=== PATIENT | male | born 1965 | race Caucasian/White ===

== ENCOUNTER 2025-01-11 10:32 | Outpatient (AMB) | payer OTHER, MEDICAID, SELFPAY ==
--- NOTE | 2025-01-11 11:52 | A.SPINEOV_ITS ---
Intake Visit Reasons: lumbar stenosis Intake Note: Mr. Coates is here today c/o back pain. MRI done @ [facility] (brought disc). [facility] Consultant Required: No Assessment & Plan Assessment & Plan (1) Lumbar radiculopathy: Code(s): M54.16 - Radiculopathy, lumbar region Category: Medical Plan Dear Dr Cano, Thank you for referring MR Coates to our office today. He is a very nice 59-year-old gentleman with a previous history of a left L5-S1 diskectomy done many years ago by Dr. Emerson, with excellent results, who for the last 8 months has had progressive left sided low back pain radiating down his posterolateral thigh into his lateral calf. The pain has been getting particularly bad over the last few months. He trialed physical therapy for awhile but the pain was too intense to continue. He has tried anti- inflammatories, Tylenol etc.. He takes Suboxone at baseline for a previous history of opioid dependency and that helps a little. He has not had any injections, acupuncture chiropractic. The pain is aggravated with standing walking and gets better when he sits down. He comes in today for evaluation with an MRI done at [facility] showing severe stenosis at L4-5. PMH: Otherwise healthy, denies any major medical history, did have eye surgery, previous left L5-S1 back surgery, he had a repair of a fracture of his leg when he was a child. Denies any cardiovascular problems. He is a lifelong smoker, smokes about a half a pack a day, has never been diagnosed with COPD, was given an inhaler 1 point but he is not short of breath so does not really use it. No history of liver or kidney disease. He reports he was diagnosed with a small kidney from his lumbar MRI and there is a follow up image to be done on that apparently. Denies any history of bleeding disorders, blood clots, cancer or unusual infections. No major abdominal surgeries. Social hx: Smokes a half a pack a day, no marijuana, no alcohol Medications: Suboxone, Motrin, Tylenol Allergies: None Physical exam: He has significant pain with standing and walking, grimaces, he limps down the hallway with an antalgic gait. He has mild foot weakness on the left I would rate it as 4/5. Has a well healed scar in the middle of his back. Imaging review: Lumbar MRI done at [facility] shows he has postsurgical changes at L5-S1 on the left, at L4-5 he has degenerative disc disease with moderate to severe stenosis, there is a small synovial cyst in the posterior midline. Impression: 59-year-old male presents with history of left L5-S1 microdiskectomy done many years ago at [facility], now develops 8 months of progressive left leg pain with standing and walking, better when he sits. He has moderate to severe stenosis at L4-5. He has tried conservative treatment in the form of tincture of time, medications and physical therapy. I think he is a good candidate for left L4-5 decompression with removal of synovial cyst. We did briefly discuss that procedure, risks, benefits etc.. Because of the previous back surgery he had at [facility], he understands the recovery etc.. I will send him for flexion-extension x-rays just to evaluate for any occult instability because there is a slight spondylolisthesis at L4-5 but I do not suspect there is any instability. I will review everything with Dr. Funk and get back to the patient with a final plan. The patient was given risk and benefits of surgery including but not limited to infection, hematoma, nerve injury, durotomy, weakness, bowel/bladder injury, persistent pain. We also discussed the option to continue with conservative treatment and patient wishes to proceed with surgery. They are aware they should stop NSAIDs 7 days prior to surgery. All questions were answered to the best of our ability. If there is anything about this patients medical history that we have overlooked or concerns you have about us proceeding with surgery we would appreciate any input you can offer Thank you for allowing us to care for your patient. The total time spent with this visit with this patient was 45 minutes reviewing history, physical exam, lumbar imaging review, and implementation of treatment plan or further diagnostic testing Taiwo Funk MD,PhD [facility] Orders: Orders XR lumbar spine 4V min Today M54.16 - Radiculopathy, lumbar region Coding Level of Care Code New Pt Level 4 (08174) Diagnoses Lumbar radiculopathy M54.16
--- OUTSIDE RECORDS SUMMARY | 2025-01-11 21:42 | XMS_ITS | Data Portability ---
Author Organization [place] - [facility] Address [address] [place] [address] Care Team Providers Care Glassworker Name Role Phone MILLY LANDA Primary Care Provider [phone] MILLY LANDA Referring Provider [phone] Assessment No assessment recorded. Plan of Treatment Reminders Order Date Submit Date Provider Last Modified By Organization Details Last Modified Time Details Appointments PCP-Addic tion Medicine 2024 08:45A M Milly Landa, DO Not available Not available Not available Lab unlisted lab - [id number] buprenorp kristine mat 2024 025 [facility], [address] [place], [address], 11/29/2024 17:33:52 noninvasi ve colorecta l cancer DNA + occult blood screening , QL, stool 2024 [address] [place] [address] [facility], [address], [address], [place], [address], 12/03/2024 14:07:19 unlisted lab - [id number] buprenorp kristine mat 2024 025 [facility], [address] [place], [address], 11/01/2024 14:10:58 unlisted lab - [id number] buprenorp kristine mat 2024 025 [facility] Patient [facility], [address] [place], [address], 10/05/2024 01:12:24 Referral pain managemen t referral [address] [facility], [address] [facility], [place], [address], 10/01/2024 11:17:47 Procedures None recorded. Surgeries None recorded. Imaging MRI, lumbar spine, w/o contrast 2024 [facility], [address] [place] [address], [place], [address], 12/26/2024 13:47:59 Medication Orders Neurontin 400 mg capsule 2024 [facility], [address] [place], [address], 12/24/2024 08:52:37 Medrol (Lucien) 4 mg tablets in a dose pack 2024 [facility], [address] [place], [address], 12/24/2024 08:57:56 Suboxone 8 mg-2 mg sublingua l film 2024 [facility], [address] [place], [address], 12/24/2024 08:52:37 trazodone 150 mg tablet 2024 [facility], [address] [place], [address], 12/24/2024 08:52:36 Humira(CF ) Pen 40 mg/0.4 mL subcutane ous kit 2024 [facility], [address] [place], [address], 12/24/2024 08:52:36 Neurontin 400 mg capsule 2024 025 [email or web address], [address] [place], [address], 11/26/2024 09:22:41 trazodone 150 mg tablet 2024 025 [email or web address], [address] [place], [address], 11/26/2024 09:22:41 albuterol sulfate HFA 90 mcg/actua tion aerosol inhaler 2024 025 [facility], [address] [place], [address], 11/26/2024 09:22:47 Suboxone 8 mg-2 mg sublingua l film 2024 025 [facility], [address] [place], [address], 11/26/2024 09:22:52 Humira(CF ) Pen 40 mg/0.4 mL subcutane ous kit 2024 025 [email or web address] [facility], [address] [place], [address], 11/30/2024 11:57:00 Suboxone 8 mg-2 mg sublingua l film 2024 025 [facility], [address] [place], [address], 10/29/2024 09:11:44 Neurontin 400 mg capsule 2024 025 [facility], [address] [place], [address], 11/26/2024 08:50:14 Medrol (Lucien) 4 mg tablets in a dose pack 2024 025 [facility], [address] [place], [address], 10/29/2024 09:08:15 gabapenti n 300 mg capsule 2024 025 [facility], [address] [place], [address], 10/29/2024 09:08:28 prednison e 20 mg tablet 2024 025 [facility], [address] [place], [address], 10/13/2024 05:01:47 nicotine 14 mg/24 hr daily transderm al patch 2024 025 [facility], [address] [place], [address], 11/26/2024 08:50:51 Suboxone 8 mg-2 mg sublingua l film 2024 025 [email or web address], [address] [place], [address], 10/09/2024 09:13:54 Patient TargetsNo targets recorded. Patient Instructions Encounter Date Encounter Id Patient Instructions Last Modified By Organization Details Last Modified Time 10/09/2024 [id number] 1. PHYSICAL THERAPY: pt encouraged to stay active. home exercises discussed. flier given. 2. BEHAVIORAL THERAPY: stable depression/psych issues 3. MEDICATIONS: will increase neurontin and try medrol dose pack 4. INTERVENTIONS: none 5. FUNCTION: pain moderately affects his function 6. PAIN ASSESSMENT: moderate to severe 7. COMPLIANCE: n/a -first visit 8. WEIGHT LOSS/DIET/SMOKING CESSATION: counseled 9. LABS/RADIOLOGY: will get xrays 11. REFERRALS : none. pt to start PT next week 10. FOLLOW UP: 7 weeks 12. OPIOID RISK ASSESSMENT: HIGH - on suboxone pt w 9 month h/o lower back pain radiating to the left foot w paresthesias . h/o lumbar diskectomy ernesto Not available 10/09/2024 09:58:43 Reason for Referral Pain Management Referral for Lumbar radiculopathy Referring Physician: Milly Landa, Family Medicine, Encounter Date: 10/01/2024 Results Created Date Observation Date Name Description Value Unit Range Abnormal Flag Note LastModifiedBy Organization Detail LastModifiedTime 09/16/1909/15/2024 GROSS AND MICRO SCOPI C LEVEL 2 results ----- ----- ----- ----- ----- ----- ----- ----- ----- ----- ----- ----- ----- ----- ----- ----- ----- ----- -- RUN DATE: 09/17 Carlos castillo *Live * - LAB PAGE 1 RUN TIME: 1319 Speci men Inqui ry ----- ----- ----- ----- ----- ----- ----- ----- ----- ----- ----- ----- ----- ----- ----- ----- ----- ----- -- PATIE NT: Luana Coates ACCT: [id number] LOC: HE.OR U: [id number] AGE/S X: 59/M ROOM: RE09/[address]: Lior jackson MD : 04/25 BED: DIS: STATU S: DEP [facility] TLOC: ----- ----- ----- ----- ----- ----- ----- ----- ----- ----- ----- ----- ----- ----- ----- ----- ----- ----- -- SPEC : [id number] RECD: 09/15 219 STATU S: ALEX GASPAR NUM: [id number] HAN: 09/15- [address]: Lior jackson MD ENTER ED: 09/15 219 SP TYPE: Surgi chauncey OTHR DR: Doris Owens Divit o DO ORDER ED: Gross Micro L2 Copie s To: Doris Penningtonit o DO Summi t Famil y Pract ice [address] [facility] [place] [address] [phone] [email or web address] Lior jackson MD [address] [facility] [place] [address] [phone] Histo logy: TISSU E ID BLK FRZ PCS BLOCK PROCE DURE LEVEL LEVEL PROCE DURE COM ____ _ ___ ___ ___ MARKE RS: GROSS DESCR IPTIO N REVIE WED PROCE DURES : Gross Micro L2 (08/26 06/19- 1319) TISSU ES: Urete r - Left urete ral brush Final Diagn osis Urete r - Left urete ral brush : Tissu e did not survi ve proce ssing . Gross Descr iptio n Amell ,Chri stoph er, date of 04/25 , biops y left urete ral brush . Recei sophia in forma dorota is a brush conta ining multi ple minut e fragm ents of soft tissu e measu ring less than 1 mm. Speci men is filte red all proce ssed in 1 casse tte. Speci men may not survi ve proce ssing . ROSIO NUED ON NEXT PAGE ----- ----- ----- ----- ----- ----- ----- ----- ----- ----- ----- ----- ----- ----- ----- ----- ----- ----- -- RUN DATE: 09/17 Carlos castillo *Live * - LAB PAGE 2 RUN TIME: 1318 Specjerrod emerson ----- ----- ----- ----- ----- ----- ----- ----- ----- ----- ----- ----- ----- ----- ----- ----- ----- ----- -- SPEC: [id number] JULIO CESAR NT: Luana Coates [id number] (Cont inued ) ----- ----- ----- ----- ----- ----- ----- ----- ----- ----- ----- ----- ----- ----- ----- ----- ----- ----- -- ----- ----- ----- ----- ----- ----- ----- ----- ----- ----- ----- ----- ----- ----- ----- ----- ----- ----- -- Savita d (sign ature on file) _ Osvaldo bee MD 09/17 1319 ----- ----- ----- ----- ----- ----- ----- ----- ----- ----- ----- ----- ----- ----- ----- ----- ----- ----- -- END OF REPOR T Not Available [facility] Laboratory Department [address] [place] [address], [address] 09/17/2024 13:20:09 09/16/1909/15/2024 CYTOP TIBURCIO GILLESPIE SONU results ----- ----- ----- ----- ----- ----- ----- ----- ----- ----- ----- ----- ----- ----- ----- ----- ----- ----- -- RUN DATE: 09/18 Carlos castillo *Live * - LAB PAGE 1 RUN TIME: 1228 Speci elena emerson ----- ----- ----- ----- ----- ----- ----- ----- ----- ----- ----- ----- ----- ----- ----- ----- ----- ----- -- JULIO CESAR NT: Luana Coates ACCT: [id number] LOC: .OR U: [id number] AGE/S X: 59/M ROOM: RE09/[address]: Lior jackson MD : 04/25 BED: DIS: STATU S: DEP SDC TLOC: ----- ----- ----- ----- ----- ----- ----- ----- ----- ----- ----- ----- ----- ----- ----- ----- ----- ----- -- SPEC : [id number] RECD: 09/15- 210 STATU S: ALEX GASPAR NUM: [id number] HAN: 09/15- [address]: Lior jackson MD ENTER ED: 09/15 211 SP TYPE: Cytol ogy OTHR DR: Doris Penningtonit o DO ORDER ED: Cyto- enhan sonu/ COMME NTS: TO FOR UROV 0722 R32 AM Copie s To: Doris Diego o DO Summi t Famil y Pract ice [address] [place] [address] [phone] [email or web address] Lior jackson MD [address] [place] [address] [phone] PROCE DURES : Cyto- enhan sonu (08/26) TISSU ES: A. Urine - Urine for cytol ogy B. Urine - Renal washi ngs for cytol ogy Final Diagn osis A. Urine - Urine for cytol ogy: Atypi chauncey uroth elial cells prese nt. The speci men is triag ed for UroVy chika. B. Urine - Renal washi ngs for cytol ogy: Negat corrie for high- grade uroth elial carci noma. Rare uroth elial cells and squam ous cells ROSIO VÁZQUEZ ON NEXT PAGE ----- ----- ----- ----- ----- ----- ----- ----- ----- ----- ----- ----- ----- ----- ----- ----- ----- ----- -- RUN DATE: 09/18 Carlos castillo *Live * - LAB PAGE 2 RUN TIME: 1228 Speci men Inqui ry ----- ----- ----- ----- ----- ----- ----- ----- ----- ----- ----- ----- ----- ----- ----- ----- ----- ----- -- SPEC: [id number] JULIO CESAR NT: Finamoises Luana [id number] (Cont inued ) ----- ----- ----- ----- ----- ----- ----- ----- ----- ----- ----- ----- ----- ----- ----- ----- ----- ----- -- Speci men Descr marc lugo,[employer] pher, date of 04/25 , urine for cytol ogy. Recei sophia are 120 cc of yello w clear urine to be used for liqui d-bas ed cytol ogy. Susan lugo, [employer] pher, date of 04/25 , renal washi ngs for cytol ogy. Recei sophia are 8 cc of light yello w clear renal washi ngs to be used for liqui d-bas ed cytol ogy. Speci men is QNS for UroVita farr. ----- ----- ----- ----- ----- ----- ----- ----- ----- ----- ----- ----- ----- ----- ----- ----- ----- ----- -- Savita d (sign ature on file) _ Adeline Nascimento MD 09/18 1228 ----- ----- ----- ----- ----- ----- ----- ----- ----- ----- ----- ----- ----- ----- ----- ----- ----- ----- -- END OF REPOR T Not Available [facility] Laboratory Department [address] [place] [address], [id number] 09/18/2024 12:29:17 09/16/1909/22/2024 MD MEJIA DWYER bladder cancer fish findings: Commen t . Negat corrie UroVy chika Resul t Fluor escen ce in situ hybri dizat ion (FISH ) of cells recov ered from urine was perfo rmed using the Competitor t Molec ular UroVy chika Kit. A minim um of twent y-fiv e cells was exami gini, and an abnor mal signa l carito rn was not detec brandon, indic ating a NEGAT CORRIE resul t. The perfo rmanc e geoffrey cteri stics of this test have been valid ated by [facility]. A posit corrie resul t is the detec tion of four or more cells with great er than two signa ls for at least two chrom osome s (3, and/o r 7, and/o r 17) and/o r twelv e or more cells with no signa l for chrom osome 9. Probe s: 3cen( D3Z1) , 7cen( D7Z1) , 9p21( p16), 17cen (D17Z 1) These resul ts shoul d be inter prete d with cauti on as the crite kaylee for UroVy chika findi ngs have not been estab lishe d in sharyn mendoza wash, instr ument ed, or fabian teriz ed speci mens by the FDA. Not Available [facility] Laboratory Department [address] [place] [address], [id number] 09/22/2024 17:07:22 09/16/1909/22/2024 MD MEJIA DWYER specimen type: Tavo owens . Unspe cifie d Colle ction Metho d Not Available [facility] Laboratory Department [address] [place] [address], [id number] 09/22/2024 17:07:22 09/16/1909/22/2024 MD MEJIA DWYER specimen description: Tavo cortes is 90ml of yello w, clear , prese rved urine . Not Available [facility] Laboratory Department [address] [place] [address], [id number] 09/22/2024 17:07:22 09/16/19 25 09/22/2024 MD MEJIA DWYER electronical ly signed: Tavo robison M.D. Not Available [facility] Department [address] [place] [address], [id number] 09/22/2024 17:07:22 09/16/19 25 09/22/2024 MD MEJIA DWYER clinical data: Tavo Bee clini chauncey data speci fied Not Available [facility] Laboratory Department [address] [place] [address], [id number] 09/22/2024 17:07:22 09/16/19 25 09/22/2024 MD MEJIA DWYER CPT codes: Tavo Burnham [address] Perfo rmed at: 01 - [employer] 1 Fores t [facility] [place] [address] 2271 Lab Direc tor: Jahaira Jimenez MD, Phone : [phone] Not Available [facility] Laboratory Department [address] [place] [address], [address]69[address] 09/22/2024 17:07:22 10/02/19 25 10/05/2024 [id number] 3 BUPRE NORPH INE MAT buprenorphin e ur POSITI VE NG/mL cutoff =5 abnormal Not Available [facility] Department [address] [place] [address], [id number] 10/05/2024 01:12:24 10/02/19 25 10/05/2024 [id number] 3 BUPRE NORPH INE MAT buprenorphin e POSITI VE . abnormal Not Available [facility] Department [address] [place] [address], 62082 10/05/2024 01:12:24 10/02/19 25 10/05/2024 [id number] 3 BUPRE NORPH INE MAT buprenorphin e scr POSITI VE . abnormal Not Available [facility] Department [address] [place] [address], 86059 10/05/2024 01:12:24 10/02/19 25 10/05/2024 [id number] 3 BUPRE NORPH INE MAT buprenorphin e conf MS ur 214 NG/mL cutoff =5 Not Available [facility] Department [address] [place] [address], 52640 10/05/2024 01:12:24 10/02/19 25 10/05/2024 66124 3 BUPRE NORPH INE MAT buprenorphin e/cr 404 . Resul t Units : ng/mg Creat Not Available [facility] Laboratory Department [address] [place] [address], [id number] 10/05/2024 01:12:24 10/02/19 25 10/05/2024 83716 3 BUPRE NORPH INE MAT norbuprenorp kristine POSITI VE . abnormal Not Available [facility] Department [address] [place] [address], 35228 10/05/2024 01:12:24 10/02/19 25 10/05/2024 16554 3 BUPRE NORPH INE MAT norbuprenorp kristine conf MS ur 709 NG/mL cutoff =5 Not Available [facility] Department [address] [place] [address], [id number] 10/05/2024 01:12:24 10/02/19 25 10/05/2024 12980 3 BUPRE NORPH INE MAT norbuprenorp kristine/cr 1338 . Resul t Units : ng/mg Creat Not Available [facility] Department [address] [place] [address], 89213 10/05/2024 01:12:24 10/02/19 25 10/05/2024 63598 3 BUPRE NORPH INE MAT norbup/bup ratio 3.31 ratio . Not Available [facility] Laboratory Department [address] [place] [address], 79666 10/05/2024 01:12:24 10/02/19 25 10/05/2024 78491 3 BUPRE NORPH INE MAT naloxone POSITI VE . abnormal Not Available [facility] Department [address] [place] [address], 53844 10/05/2024 01:12:24 10/02/19 25 10/05/2024 92289 3 BUPRE NORPH INE MAT naloxone conf MS ur >1000 NG/mL cutoff =25 Not Available [facility] Department [address] [place], [address] 10/05/2024 01:12:24 10/02/19 25 10/05/2024 04132 3 BUPRE NORPH INE MAT ethyl glucuronide ur NEGATI VE NG/mL cutoff =500 Not Available [facility] Department [address] [place], [address] 10/05/2024 01:12:24 10/02/19 25 10/05/2024 72214 3 BUPRE NORPH INE MAT amphetamines ur NEGATI VE NG/mL cutoff =500 Not Available [facility] Department [address] [place], [address] 10/05/2024 01:12:24 10/02/19 25 10/05/2024 09616 3 BUPRE NORPH INE MAT barbiturates ur NEGATI VE NG/mL cutoff =200 Not Available [facility] Department [address] [place] [address], 37748 10/05/2024 01:12:24 10/02/19 25 10/05/2024 71186 3 BUPRE NORPH INE MAT benzodiazepi regina ur NEGATI VE NG/mL cutoff =200 Not Available [facility] Department [address] [place] [address], 03641 10/05/2024 01:12:24 10/02/19 25 10/05/2024 80749 3 BUPRE NORPH INE MAT cocaine metabolite ur NEGATI VE NG/mL cutoff =150 Not Available [facility] Department [address] [place] [address], 41632 10/05/2024 01:12:24 10/02/19 25 10/05/2024 32632 3 BUPRE NORPH INE MAT phencyclidin e pcp ur NEGATI VE NG/mL cutoff =25 Not Available [facility] Department [address] [place] [address], 33833 10/05/2024 01:12:24 10/02/19 25 10/05/2024 30792 3 BUPRE NORPH INE MAT marijuana mtb THC ur POSITI VE NG/mL cutoff =20 abnormal Not Available [facility] Department [address] [place] [address], 97546 10/05/2024 01:12:24 10/02/19 25 10/05/2024 50593 3 BUPRE NORPH INE MAT marijuana mtb THC POSITI VE . abnormal Not Available [facility] Department [address] [place] [address], 84[address] 10/05/2024 01:12:24 10/02/19 25 10/05/2024 65261 3 BUPRE NORPH INE MAT carboxy-THC 33 NG/mL cutoff =10 Not Available [facility] Department [address] [place] [address], 52228 10/05/2024 01:12:24 10/02/19 25 10/05/2024 10362 3 BUPRE NORPH INE MAT THC/cr ratio 62 . Resul t Units : ng/mg Creat Perfo rmed at: 01 - [facility] [address] [place] [address] Lab Direc tor: Anna nguyễn [facility] , Phone : [phone] Not Available [facility] Laboratory Department [address] [place] [address], 165[address] 10/05/2024 01:12:24 10/02/19 25 10/05/2024 14298 3 BUPRE NORPH INE MAT 6-acetylmorp kristine ur NEGATI VE NG/mL cutoff =10 Not Available [facility] Department [address] [place] [address], 17611 10/05/2024 01:12:24 10/02/19 25 10/05/2024 22418 3 BUPRE NORPH INE MAT opiates ur NEGATI VE NG/mL cutoff =300 Not Available [facility] Department [address] [place] [address], 17064 10/05/2024 01:12:24 10/02/1910/05/2024 21511 3 BUPRE NORPH INE MAT oxycodone ur NEGATI VE NG/mL cutoff =100 Not Available [facility] Department [address] [place] [address], 32342 10/05/2024 01:12:24 10/02/19 25 10/05/2024 24101 3 BUPRE NORPH INE MAT tapentadol ur NEGATI VE NG/mL cutoff =200 Not Available [facility] Department [address] [place] [address], 98267 10/05/2024 01:12:24 10/02/19 25 10/05/2024 95757 3 BUPRE NORPH INE MAT fentanyl ur NEGATI VE NG/mL cutoff =2.0 Not Available [facility] Department [address] [place], [address] 10/05/2024 01:12:24 10/02/1910/05/2024 04385 3 BUPRE NORPH INE MAT methadone ur NEGATI VE NG/mL cutoff =300 Not Available [facility] Department [address] [place], [address] 10/05/2024 01:12:24 10/02/1910/05/2024 88040 3 BUPRE NORPH INE MAT propoxyphene ur NEGATI VE NG/mL cutoff =300 Not Available [facility] Department [address] [place] [address], 82921 10/05/2024 01:12:24 10/02/1910/05/2024 98551 3 BUPRE NORPH INE MAT tramadol ur NEGATI VE NG/mL cutoff =200 Not Available [facility] Department [address] [place] [address], 65746 10/05/2024 01:12:24 10/02/1910/05/2024 76901 3 BUPRE NORPH INE MAT carisoprodol ur NEGATI VE NG/mL cutoff =100 Not Available [facility] Department [address] [place] [address], 90491 10/05/2024 01:12:24 10/02/1910/05/2024 83424 3 BUPRE NORPH INE MAT gabapentin NEGATI VE ug/mL cutoff =1.5 Not Available [facility] Department [address] [place] [address], 27320 10/05/2024 01:12:24 10/02/1910/05/2024 39910 3 BUPRE NORPH INE MAT creatinine 53.0 mg/dL >19.9 Not Available [facility] Department [address] [place] [address], 47846 10/05/2024 01:12:24 10/02/19 25 10/05/2024 25658 3 BUPRE NORPH INE MAT urine pH 6.3 4.5-8. 9 Not Available [facility] Department [address] [place] [address], 97591 10/05/2024 01:12:24 10/02/19 25 10/05/2024 22195 3 BUPRE NORPH INE MAT nitrites NEGATI VE ug/mL <200 Not Available [facility] Department [address] [place], [address] 10/05/2024 01:12:24 10/02/1910/05/2024 59574 3 MIRA RICHMOND VIPUL please note 5 TAVO T . Some compo nents of this panel were devel oped and perfo rmanc e geoffrey cteri stics deter mined by [employer]. They have not been clear ed or appro sophia by the Food and Drug Admin istra tion: Etg, Caris oprod ol, Tapen tadol , Fenta nyl, and Gabap entin . Not Available [facility] Laboratory Department [address] [place], [address] 10/05/2024 01:12:24 10/09/1910/08/2024 CYTOP ATH-Doreen ASCENCIO results ----- ----- ----- ----- ----- ----- ----- ----- ----- ----- ----- ----- ----- ----- ----- ----- ----- ----- -- RUN DATE: 10/12 Carlos castillo *Live * - LAB PAGE 1 RUN TIME: 0950 Speci men Inqui ry ----- ----- ----- ----- ----- ----- ----- ----- ----- ----- ----- ----- ----- ----- ----- ----- ----- ----- -- PATIE NT: Luana Coates ACCT: [id number] LOC: JACK SOLIZ U: [id number] AGE/S X: 59/M ROOM: RE10/[address]: Lior jackson MD : 04/25 BED: DIS: STATU S: DEP SDC TLOC: ----- ----- ----- ----- ----- ----- ----- ----- ----- ----- ----- ----- ----- ----- ----- ----- ----- ----- -- SPEC : [id number] RECD: 10/08 921 STATU S: ALEX REQ NUM: [id number] HAN: 10/[address]: Lior jackson MD ENTER ED: 10/08 921 SP TYPE: Cytol ogy OTHR DR: Doris Owens Divit o DO ORDER ED: Cyto- enhan sonu Zohra s To: Doris Penningtonit o DO Summi t Famil y Pract ice [address] [place] [address] [phone] [email or web address] Lior jackson MD [address] [place] [address] [phone] PROCE DURES : Cyto- enhan sonu (09/25) TISSU ES: Urine - Bladd er washi ng for cytol ogy Final Diagn osis Urine - Bladd er washi ng for cytol ogy: Negat corrie for high- grade uroth elial carci noma. Rare uroth elial cells and squam ous cells . Speci men Descr iptio n Amell ,[facility], date of 04/25 , bladd er washi ng for cytol ogy. Recei sophia 70 cc, pale yello w, clear bladd er washi ng for liqui d-bas ed cytol ogy. ----- ----- ----- ----- ----- ----- ----- ----- ----- ----- ----- ----- ----- ----- ----- ----- ----- ----- -- Savita d (sign ature on file) _ Adeline Nascimento MD 10/12 0949 ----- ----- ----- ----- ----- ----- ----- ----- ----- ----- ----- ----- ----- ----- ----- ----- ----- ----- -- END OF REPOR T Not Available [facility] Laboratory Department [address] [place] [address], 23986 10/12/2024 09:50:36 10/30/1911/01/2024 63621 3 BUPRE NORPH INE MAT buprenorphin e ur POSITI VE NG/mL cutoff =5 abnormal Not Available [facility] Laboratory Department [address] [place] [address], 02184 11/01/2024 14:10:58 10/30/1911/01/2024 73547 3 BUPRE NORPH INE MAT buprenorphin e POSITI VE . abnormal Not Available [facility] Laboratory Department [address] [place] [address], 50076 11/01/2024 14:10:58 10/30/1911/01/2024 99033 3 BUPRE NORPH INE MAT buprenorphin e scr POSITI VE . abnormal Not Available [facility] Department [address] [place] [address], 73374 11/01/2024 14:10:58 10/30/1911/01/2024 13196 3 BUPRE NORPH INE MAT buprenorphin e conf MS ur 233 NG/mL cutoff =5 Not Available [facility] Department [address] [place] [address], 91982 11/01/2024 14:10:58 10/30/1911/01/2024 19206 3 BUPRE NORPH INE MAT buprenorphin e/cr 364 . Resul t Units : ng/mg Creat Not Available [facility] Laboratory Department [address] [place] [address], [id number] 11/01/2024 14:10:58 10/30/1911/01/2024 [id number] 3 BUPRE NORPH INE MAT norbuprenorp kristine POSITI VE . abnormal Not Available [facility] Department [address] [place] [address], 85748 11/01/2024 14:10:58 10/30/19 25 11/01/2024 [id number] 3 BUPRE NORPH INE MAT norbuprenorp kristine conf MS ur 857 NG/mL cutoff =5 Not Available [facility] Department [address] [place] [address], 39085 11/01/2024 14:10:58 10/30/19 25 11/01/2024 [id number] 3 BUPRE NORPH INE MAT norbuprenorp kristine/cr 1339 . Resul t Units : ng/mg Creat Not Available [facility] Department [address] [place] [address], [id number] 11/01/2024 14:10:58 10/30/1911/01/2024 [id number] 3 BUPRE NORPH INE MAT norbup/bup ratio 3.68 ratio . Not Available [facility] Laboratory Department [address] [place] [address], 51140 11/01/2024 14:10:58 10/30/19 25 11/01/2024 90061 3 BUPRE NORPH INE MAT naloxone POSITI VE . abnormal Not Available [facility] Department [address] [place] [address], 20487 11/01/2024 14:10:58 10/30/19 25 11/01/2024 [id number] 3 BUPRE NORPH INE MAT naloxone conf MS ur >1000 NG/mL cutoff =25 Not Available [facility] Department [address] [place] [address], 66990 11/01/2024 14:10:58 10/30/19 25 11/01/2024 [id number] 3 BUPRE NORPH INE MAT ethyl glucuronide ur NEGATI VE NG/mL cutoff =500 Not Available [facility] Department [address] [place] [address], 94488 11/01/2024 14:10:58 10/30/19 25 11/01/2024 [id number] 3 BUPRE NORPH INE MAT amphetamines ur NEGATI VE NG/mL cutoff =500 Not Available [facility] Department [address] [place] [address], 31884 11/01/2024 14:10:58 10/30/19 25 11/01/2024 [id number] 3 BUPRE NORPH INE MAT barbiturates ur NEGATI VE NG/mL cutoff =200 Not Available [facility] Department [address] [place] [address], 98200 11/01/2024 14:10:58 10/30/19 25 11/01/2024 87613 3 BUPRE NORPH INE MAT benzodiazepi regina ur NEGATI VE NG/mL cutoff =200 Not Available [facility] Department [address] [place] [address], 03353 11/01/2024 14:10:58 10/30/19 25 11/01/2024 10837 3 BUPRE NORPH INE MAT cocaine metabolite ur NEGATI VE NG/mL cutoff =150 Not Available [facility] Department [address] [place] [address], 39776 11/01/2024 14:10:58 10/30/19 25 11/01/2024 90736 3 BUPRE NORPH INE MAT phencyclidin e pcp ur NEGATI VE NG/mL cutoff =25 Not Available [facility] Department [address] [place] [address], 53750 11/01/2024 14:10:58 10/30/19 25 11/01/2024 77040 3 BUPRE NORPH INE MAT marijuana mtb THC ur POSITI VE NG/mL cutoff =20 abnormal Not Available [facility] Department [address] [place] [address], 56598 11/01/2024 14:10:58 10/30/19 25 11/01/2024 [id number] 3 BUPRE NORPH INE MAT marijuana mtb THC POSITI VE . abnormal Not Available [facility] Department [address] [place] [address], 30004 11/01/2024 14:10:58 10/30/19 25 11/01/2024 [id number] 3 BUPRE NORPH INE MAT carboxy-THC 62 NG/mL cutoff =10 Not Available [facility] Department [address] [place] [address], 85746 11/01/2024 14:10:58 10/30/19 25 11/01/2024 55513 3 BUPRE NORPH INE MAT THC/cr ratio 97 . Resul t Units : ng/mg Creat Perfo rmed at: 01 - [facility] [address] [facility] [place] [address] 352 Lab Direc tor: Anna nguyễn [facility] , Phone : [phone] Not Available [facility] Department [address] [place] [address], 09890 11/01/2024 14:10:58 10/30/19 25 11/01/2024 [id number] 3 BUPRE NORPH INE MAT 6-acetylmorp kristine ur NEGATI VE NG/mL cutoff =10 Not Available [facility] Department [address] [place] [address], 34968 11/01/2024 14:10:58 10/30/19 25 11/01/2024 [id number] 3 BUPRE NORPH INE MAT opiates ur NEGATI VE NG/mL cutoff =300 Not Available [facility] Department [address] [place] [address], 21877 11/01/2024 14:10:58 10/30/19 25 11/01/2024 70057 3 BUPRE NORPH INE MAT oxycodone ur NEGATI VE NG/mL cutoff =100 Not Available [facility] Department [address] [place] [address], 80223 11/01/2024 14:10:58 10/30/19 25 11/01/2024 83656 3 BUPRE NORPH INE MAT tapentadol ur NEGATI VE NG/mL cutoff =200 Not Available [facility] Department [address] [place] [address], 81596 11/01/2024 14:10:58 10/30/19 25 11/01/2024 51270 3 BUPRE NORPH INE MAT fentanyl ur NEGATI VE NG/mL cutoff =2.0 Not Available [facility] Department [address] [place] [address], 57295 11/01/2024 14:10:58 10/30/19 25 11/01/2024 86766 3 BUPRE NORPH INE MAT methadone ur NEGATI VE NG/mL cutoff =300 Not Available [facility] Department [address] [place] [address], 26297 11/01/2024 14:10:58 10/30/19 25 11/01/2024 99213 3 BUPRE NORPH INE MAT propoxyphene ur NEGATI VE NG/mL cutoff =300 Not Available [facility] Department [address] [place] [address], 55234 11/01/2024 14:10:58 10/30/19 25 11/01/2024 54149 3 BUPRE NORPH INE MAT tramadol ur NEGATI VE NG/mL cutoff =200 Not Available [facility] Department [address] [place] [address], 94102 11/01/2024 14:10:58 10/30/19 25 11/01/2024 22809 3 BUPRE NORPH INE MAT carisoprodol ur NEGATI VE NG/mL cutoff =100 Not Available [facility] Department [address] [place] [address], 72185 11/01/2024 14:10:58 10/30/19 25 11/01/2024 90501 3 BUPRE NORPH INE MAT gabapentin NEGATI VE ug/mL cutoff =1.5 Not Available [facility] Department [address] [place] [address], 90759 11/01/2024 14:10:58 10/30/19 25 11/01/2024 25529 3 BUPRE NORPH INE MAT creatinine 64.0 mg/dL >19.9 Not Available [facility] Department [address] [place] [address], 08512 11/01/2024 14:10:58 10/30/19 25 11/01/2024 73683 3 BUPRE NORPH INE MAT urine pH 6.1 4.5-8. 9 Not Available [facility] Department [address] [place] [address], 63784 11/01/2024 14:10:58 10/30/19 25 11/01/2024 38815 3 BUPRE NORPH INE MAT nitrites NEGATI VE ug/mL <200 Not Available [facility] Department [address] [place] [address], 69650 11/01/2024 14:10:58 10/30/19 25 11/01/2024 [id number] 3 BUPRE NORPH INE MAT please note 5 COMMEN T . Some compo nents of this panel were devel oped and perfo rmanc e geoffrey cteri stics deter mined by [facility]. They have not been clear ed or appro sophia by the Food and Drug Admin istra tion: Etg, Caris oprod ol, Tapen tadol , Fenta nyl, and Gabap entin . Not Available [facility] Department [address] [place], [address] 11/01/2024 14:10:58 11/27/19 25 11/29/2024 24137 3 BUPRE NORPH INE MAT buprenorphin e ur POSITI VE NG/mL cutoff =5 abnormal Not Available [facility] Department [address] [place], [address] 11/29/2024 17:33:51 11/27/19 25 11/29/2024 66670 3 BUPRE NORPH INE MAT buprenorphin e POSITI VE . abnormal Not Available [facility] Department [address] [place] [address], 25647 11/29/2024 17:33:51 11/27/19 25 11/29/2024 56022 3 BUPRE NORPH INE MAT buprenorphin e scr POSITI VE . abnormal Not Available [facility] Department [address] [place] [address], 52317 11/29/2024 17:33:51 11/27/19 25 11/29/2024 07729 3 BUPRE NORPH INE MAT buprenorphin e conf MS ur 131 NG/mL cutoff =5 Not Available [facility] Department [address] [place] [address], 12500 11/29/2024 17:33:51 11/27/19 25 11/29/2024 83502 3 BUPRE NORPH INE MAT buprenorphin e/cr 89 . Resul t Units : ng/mg Creat Not Available [facility] Department [address] [place] [address], 60183 11/29/2024 17:33:51 11/27/19 25 11/29/2024 49300 3 BUPRE NORPH INE MAT norbuprenorp kristine POSITI VE . abnormal Not Available [facility] Department [address] [place] [address], 34617 11/29/2024 17:33:51 11/27/19 25 11/29/2024 53185 3 BUPRE NORPH INE MAT norbuprenorp kristine conf MS ur >1000 NG/mL cutoff =5 Not Available [facility] Department [address] [place] [address], 13817 11/29/2024 17:33:51 11/27/19 25 11/29/2024 53100 3 BUPRE NORPH INE MAT norbuprenorp kristine/cr >676 . Resul t Units : ng/mg Creat Not Available [facility] Department [address] [place], [address] 11/29/2024 17:33:51 11/27/19 25 11/29/2024 24471 3 BUPRE NORPH INE MAT norbup/bup ratio >7.63 ratio . Not Available [facility] Laboratory Department [address] [place], [address] 11/29/2024 17:33:51 11/27/19 25 11/29/2024 72849 3 BUPRE NORPH INE MAT naloxone POSITI VE . abnormal Not Available [facility] Department [address] [place] [address], 94256 11/29/2024 17:33:51 11/27/19 25 11/29/2024 78681 3 BUPRE NORPH INE MAT naloxone conf MS ur >1000 NG/mL cutoff =25 Not Available [facility] Department [address] [place] [address], 82925 11/29/2024 17:33:51 11/27/19 25 11/29/2024 41065 3 BUPRE NORPH INE MAT ethyl glucuronide ur NEGATI VE NG/mL cutoff =500 Not Available [facility] Department [address] [place] [address], 08168 11/29/2024 17:33:51 11/27/19 25 11/29/2024 09236 3 BUPRE NORPH INE MAT amphetamines ur NEGATI VE NG/mL cutoff =500 Not Available [facility] Department [address] [place] [address], 41060 11/29/2024 17:33:51 11/27/19 25 11/29/2024 84677 3 BUPRE NORPH INE MAT barbiturates ur NEGATI VE NG/mL cutoff =200 Not Available [facility] Department [address] [place] [address], 52325 11/29/2024 17:33:51 11/27/19 25 11/29/2024 02816 3 BUPRE NORPH INE MAT benzodiazepi regina ur NEGATI VE NG/mL cutoff =200 Not Available [facility] Department [address] [place] [address], 27762 11/29/2024 17:33:51 11/27/19 25 11/29/2024 95585 3 BUPRE NORPH INE MAT cocaine metabolite ur NEGATI VE NG/mL cutoff =150 Not Available [facility] Department [address] [place] [address], 89827 11/29/2024 17:33:51 11/27/1911/29/2024 41867 3 BUPRE NORPH INE MAT phencyclidin e pcp ur NEGATI VE NG/mL cutoff =25 Not Available [facility] Department [address] [place] [address], 91204 11/29/2024 17:33:51 11/27/1911/29/2024 04353 3 BUPRE NORPH INE MAT marijuana mtb THC ur POSITI VE NG/mL cutoff =20 abnormal Not Available [facility] Department [address] [place] [address], 31695 11/29/2024 17:33:51 11/27/1911/29/2024 59827 3 BUPRE NORPH INE MAT marijuana mtb THC POSITI VE . abnormal Not Available [facility] Department [address] [place] [address], 62735 11/29/2024 17:33:51 11/27/1911/29/2024 16263 3 BUPRE NORPH INE MAT carboxy-THC 135 NG/mL cutoff =10 Not Available [facility] Department [address] [place] [address], 22629 11/29/2024 17:33:51 11/27/1911/29/2024 19338 3 BUPRE NORPH INE MAT THC/cr ratio 91 . Resul t Units : ng/mg Creat Perfo rmed at: 01 - [facility] [address] [place], [place] [id number] Lab Direc tor: Anna nguyễn [facility] , Phone : [phone] Not Available [facility] Department [address] [place] [address], 67501 11/29/2024 17:33:51 11/27/1911/29/2024 59820 3 BUPRE NORPH INE MAT 6-acetylmorp kristine ur NEGATI VE NG/mL cutoff =10 Not Available [facility] Department [address] [place] [address], 20201 11/29/2024 17:33:51 11/27/19 25 11/29/2024 73646 3 BUPRE NORPH INE MAT opiates ur NEGATI VE NG/mL cutoff =300 Not Available [facility] Department [address] [place] [address], 72194 11/29/2024 17:33:51 11/27/19 25 11/29/2024 89192 3 BUPRE NORPH INE MAT oxycodone ur NEGATI VE NG/mL cutoff =100 Not Available [facility] Department [address] [place] [address], 93568 11/29/2024 17:33:51 11/27/19 25 11/29/2024 60660 3 BUPRE NORPH INE MAT tapentadol ur NEGATI VE NG/mL cutoff =200 Not Available [facility] Department [address] [place] [address], 84656 11/29/2024 17:33:51 11/27/19 25 11/29/2024 05003 3 BUPRE NORPH INE MAT fentanyl ur NEGATI VE NG/mL cutoff =2.0 Not Available [facility] Department [address] [place] [address], 08468 11/29/2024 17:33:51 11/27/19 25 11/29/2024 81975 3 BUPRE NORPH INE MAT methadone ur NEGATI VE NG/mL cutoff =300 Not Available [facility] Department [address] [place] [address], 80929 11/29/2024 17:33:51 11/27/19 25 11/29/2024 64663 3 BUPRE NORPH INE MAT propoxyphene ur NEGATI VE NG/mL cutoff =300 Not Available [facility] Department [address] [place] [address], 26683 11/29/2024 17:33:51 11/27/19 25 11/29/2024 87780 3 BUPRE NORPH INE MAT tramadol ur NEGATI VE NG/mL cutoff =200 Not Available [facility] Department [address] [place] [address], 16465 11/29/2024 17:33:51 11/27/19 25 11/29/2024 47333 3 BUPRE NORPH INE MAT carisoprodol ur NEGATI VE NG/mL cutoff =100 Not Available [facility] Department [address] [place] [address], 25294 11/29/2024 17:33:51 10/04/16 2411/29/2024 63853 3 BUPRE NORPH INE MAT gabapentin NEGATI VE ug/mL cutoff =1.5 Not Available [facility] Department [address] [place] [address], 03893 11/29/2024 17:33:51 11/27/1911/29/2024 74958 3 BUPRE NORPH INE MAT creatinine 148.0 mg/dL >19.9 Not Available [facility] Department [address] [place] [address], 09437 11/29/2024 17:33:51 11/27/1911/29/2024 82641 3 BUPRE NORPH INE MAT urine pH 5.8 4.5-8. 9 Not Available [facility] Department [address] [place] [address], 86256 11/29/2024 17:33:51 11/27/1911/29/2024 25000 3 BUPRE NORPH INE MAT nitrites NEGATI VE ug/mL <200 Not Available [facility] Department [address] [place] [address], 45920 11/29/2024 17:33:51 11/27/1911/29/2024 52769 3 BUPRE NORPH INE MAT please note 5 COMMEN T . Some compo nents of this panel were devel opjac and perfo tanisha e geoffrey monroyri stics deter mined by [facility]. They have not been clear ed or appro sophia by the Food and Drug Admin istra tion: Etg, Caris oprod ol, Tapen tadol , Fenta nyl, and Gabap entin . Not Available [facility] Laboratory Department [address] [place] [address], 59416 11/29/2024 17:33:51 09/18/1909/15/2024 ir fluor oscop y <1HR [facility] [address] [place] [address]. [place] [address] Interv ention al Radiol ogy Rpt Signed Patien t: Pedro Coates MR#: [id number] : 1965 Acct:H [id number] Age/Se x: 59 / M ADM Date: Loc: HE.OR Attend ing Dr: Lior Galvez MD Orderi ng Physic janene: Lior Galvez MD Date of Servic e: Proced ure(s) : IR fluoro scopy <1hr Access ion Number (s): [id number] H cc: Milly Landa DO EXAM: IR fluoro scopy <1hr CLINIC AL INDICA TION: L ureter oscopy FINDIN GS: Cumula tive dose 6.85 mGy. 7 spot fluoro scopic images were submit brandon during left retrog rade ureter ogram and ureter oscopy Fillin g defect in the left mid ureter at the level of the SI joint raisin g possib ility of a mass Modera te left hydron ephros is 013 IR/IR fluoro scopy <1hr IMPRES CHIKA: Fluoro scopy was provid ed for during left retrog rade ureter ogram and ureter oscopy Fillin g defect in the left mid ureter at the level of the SI joint raisin g possib ility of a mass Modera te left hydron ephros is Electr onical ly Signed By: Lisbet Domingo MD On: 1636 Dictat ed By: Lisbet Domingo MD 1109 Signed By: Lisbet Domingo MD 1636 [facility] [address] [place] [address], 44490, 09/18/2024 07:50:16 12/27/19 25 12/26/2024 MRI, lumba r spine , w/o contr ast [facility] [address] [place] [address]. [place] [address] Magnet ic Resona nce Report Signed Patien t: Aminata Pedro esquivel MR#: [id number] : 1965 Acct:H [id number] Age/Se x: 59 / M ADM Date: Loc: HE.MRI Attend ing Dr: Milly Martinez Physic janene: Milly Landa DO Date of Servic e: Proced ure(s) : MR lumbar spine wo con Access ion Number (s): [id number] H cc: Milly Landa DO STUDY: MR lumbar spine wo con 025 8:20 AM HISTOR Y: lumbar radicu lopath y COMPAR PRESTON: None TECHNI QUE: Multis equenc e multip lanar MRI of the lumbar spine withou t intrav enous contra stTej ENNIS GS: Bone: There is preser vation of the normal lumbar lordos is. There is 2 mm retrol isthes is of L2 on L3 and 2 mm retrol isthes is of L3 on L4. There is 4 mm boyd listhe sis of L4 and L5 and 4 mm retrol isthes is of L5 and S1. Verteb ral body height s appear mainta ined. Marrow signal is mildly hetero geneou s. No suspic ious focal marrow replac ing lesion . Edema adjace nt to the bilate ral L4-L5 facets , likely degene rative in etiolo gy. Previo us left hemila minect yolanda at L5-S1 with postsu rgical change . Discs and endpla karin: There is diffus e loss of disc height and disc desicc ation throug hout the lumbar spine with relati ve preser vation of T12-L1 and L2-L3. There are associ ated degene rative endpla te change s includ ing a compon ent of Modic type I endpla te change at L5-S1. . T12-L1 : There is no disc hernia tion or signif icant spinal canal stenos is or neural forami nal stenos is. L1-2: There is no disc hernia tion or signif icant spinal canal stenos is or neural forami nal stenos is. L2-3: Slight snowboard instructor ior disc bulge withou t signif icant spinal canal or neural forami nal narrow ing. L3-4: Retrol isthes is with snowboard instructor ior disc bulge. Mild bilate ral facet arthro aba. Mild right and modera te left neural forami nal stenos is with mild spinal canal stenos is. L4-5: Boyd listhe sis of snowboard instructor ior disc bulge with disc uncove ring. Bilate ral facet arthro aba. Mild bilate ral neural forami nal stenos is with modera te to severe spinal canal stenos is. L5-S1: Retrol isthes is of snowboard instructor ior disc proces s disc uncove ring. Bilate ral facet arthro aba. Previo us left hemila minect yolanda. Mild left and modera te right neural forami nal stenos is with trace spinal canal stenos is. Spinal canal: The conus medull iván ends at the L2 level and appear s normal . 5 by 6 mm rounde d T2 hyperi ntense struct ure adjace nt to the L4-L5 facets within the dorsal aspect of the spinal canal (5:10) likely reflec ting an associ ated synovi al cyst. Atroph ic left kidney . 002 MR/MR lumbar spine wo con IMPRES CHIKA: 1. Postsu rgical change from previo us left L5-S1 hemila minect yolanda. 2. Multil evel multif actori al degene rative findin gs of the lumbar spine. Findin gs includ e modera te to severe spinal canal stenos is at L4-L5. There is also modera te left neural forami nal stenos is at L3-L4 and modera te right neural forami nal stenos is at L5-S1. Electr onical ly Signed By: Sai Martinez MD On: 1344 Dictat ed By: Sai Martinez MD 0820 Signed By: Sai Martinez MD 1344 [email or web address] [facility] [address] [place] [address], 67425, 12/28/2024 08:19:40 12/27/19 25 12/26/2024 MR lumba r spine (C-) CPT 13408 [facility], [facility] Access ion Number : [id number] Agustin t Name: Pedro Coatesa moises Record Number : [id number] Date of : 1965 Date of Exam: 2024 Referr ing Physic janene: [facility] [address] [facility] [address] Exam: MR Lumbar Spine (C-) CPT 17481 Room Descri ption: [facility] [address] [place] [address] Magnet ic Resona nce Report Signed Patiblake t: Pedro Coates MR#: [id number] : 1965 Acct: [id number] Age/Se x: 59 / M ADM Date: Loc: HE.MRI Attend ing Dr: Milly Landa DO Orderi ng Physic janene: Milly Landa DO Date of Servic e: Proced ure(s) : MR lumbar spine wo con Access ion Number (s): [id number] H cc: Milly Landa DO STUDY: MR lumbar spine wo con 025 8:20 AM HISTOR Y: lumbar radicu lopath y COMPAR PRESTON: None TECHNI QUE: Multis equenc e multip lanar MRI of the lumbar spine withou t intrav enous contra st. LOLI GS: Bone: There is preser vation of the normal lumbar lordos is. There is 2 mm retrol isthes is of L2 on L3 and 2 mm retrol isthes is of L3 on L4. There is 4 mm boyd listhe sis of L4 and L5 and 4 mm retrol isthes is of L5 and S1. Verteb ral body height s appear mainta ined. Marrow signal is mildly hetero geneou s. No suspic ious focal marrow replac ing lesion . Edema adjace nt to the bilate ral L4-L5 facets , likely degene rative in etiolo gy. Previo us left hemila minect yolanda at L5-S1 with postsu rgical change . Discs and endpla karin: There is diffus e loss of disc height and disc desicc ation throug hout the lumbar spine with relati ve preser vation of T12-L1 and L2-L3. There are associ ated degene rative endpla te change s includ ing a compon ent of Modic type I endpla te change at L5-S1. . T12-L1 : There is no disc hernia tion or signif icant spinal canal stenos is or neural forami nal stenos is. L1-2: There is no disc hernia tion or signif icant spinal canal stenos is or neural forami nal stenos is. L2-3: Slight snowboard instructor ior disc bulge withou t signif icant spinal canal or neural forami nal narrow ing. L3-4: Retrol isthes is with snowboard instructor ior disc bulge. Mild bilate ral facet arthro aba. Mild right and modera te left neural forami nal stenos is with mild spinal canal stenos is. L4-5: Boyd listhe sis of snowboard instructor ior disc bulge with disc uncove ring. Bilate ral facet arthro aba. Mild bilate ral neural forami nal stenos is with modera te to severe spinal canal stenos is. L5-S1: Retrol isthes is of snowboard instructor ior disc proces s disc uncove ring. Bilate ral facet arthro aba. Previo us left hemila minect yolanda. Mild left and modera te right neural forami nal stenos is with trace spinal canal stenos is. Spinal canal: The conus medull iván ends at the L2 level and appear s normal . 5 by 6 mm rounde d T2 hyperi ntense struct ure adjace nt to the L4-L5 facets within the dorsal aspect of the spinal canal (5:10) likely reflec ting an associ ated synovi al cyst. Atroph ic left kidney . 002 MR/MR lumbar spine wo con IMPRES CHIKA: 1. Postsu rgical change from previo us left L5-S1 hemila minect yolanda. 2. Multil evel multif actori al degene rative findin gs of the lumbar spine. Findin gs includ e modera te to severe spinal canal stenos is at L4-L5. There is also modera te left neural forami nal stenos is at L3-L4 and modera te right neural forami nal stenos is at L5-S1. Electr onical ly Signed By: Sai Martinez MD On: 134 Dictat ed By: Sai Martinez MD 08 Signed By: Sai Martinez MD 134 Electr onical ly Signed By: Sai Martinez MD [email or web address] [facility] [address] [facility], [place], [address], 12/28/2024 08:19:40 01/12/20 25 01/11/2025 XR, lumba r spine No observ ation record ed. [email or web address] [facility] General Surgery [address], [place], [address], 01/11/2025 16:53:07 Result Notes Documentation Provider Name and Address Organization Details Recorded Time Mri, Lumbar Spine, W/o Contrast : [facility] [address] [place] [address] Magnetic Resonance Report Signed Patient: Jareth Coates MR#: [id number] : 1965 Acct:[id number] Age/Sex: 59 / M ADM Date: 12/26/24 Loc: HE.MRI Attending Dr: Milly Landa DO Ordering Physician: Milly Landa DO Date of Service: 12/26/24 Procedure(s): MR lumbar spine wo con Accession Number(s): [id number] cc: Milly Landa DO STUDY: MR lumbar spine wo con 12/26/2024 8:20 AM HISTORY: lumbar radiculopathy COMPARISON: None TECHNIQUE: Multisequence multiplanar MRI of the lumbar spine without intravenous contrast. FINDINGS: Bone: There is preservation of the normal lumbar lordosis. There is 2 mm retrolisthesis of L2 on L3 and 2 mm retrolisthesis of L3 on L4. There is 4 mm anterolisthesis of L4 and L5 and 4 mm retrolisthesis of L5 and S1. Vertebral body heights appear maintained. Marrow signal is mildly heterogeneous. No suspicious focal marrow replacing lesion. Edema adjacent to the bilateral L4-L5 facets, likely degenerative in etiology. Previous left hemilaminectomy at L5-S1 with postsurgical change. Discs and endplates: There is diffuse loss of disc height and disc desiccation throughout the lumbar spine with relative preservation of T12-L1 and L2-L3. There are associated degenerative endplate changes including a component of Modic type I endplate change at L5-S1.. T12-L1: There is no disc herniation or significant spinal canal stenosis or neural foraminal stenosis. L1-2: There is no disc herniation or significant spinal canal stenosis or neural foraminal stenosis. L2-3: Slight posterior disc bulge without significant spinal canal or neural foraminal narrowing. L3-4: Retrolisthesis with posterior disc bulge. Mild bilateral facet arthropathy. Mild right and moderate left neural foraminal stenosis with mild spinal canal stenosis. L4-5: Anterolisthesis of posterior disc bulge with disc uncovering. Bilateral facet arthropathy. Mild bilateral neural foraminal stenosis with moderate to severe spinal canal stenosis. L5-S1: Retrolisthesis of posterior disc process disc uncovering. Bilateral facet arthropathy. Previous left hemilaminectomy. Mild left and moderate right neural foraminal stenosis with trace spinal canal stenosis. Spinal canal: The conus medullaris ends at the L2 level and appears normal. 5 by 6 mm rounded T2 hyperintense structure adjacent to the L4-L5 facets within the dorsal aspect of the spinal canal (5:10) likely reflecting an associated synovial cyst. Atrophic left kidney. MR/MR lumbar spine wo con IMPRESSION: 1. Postsurgical change from previous left L5-S1 hemilaminectomy. 2. Multilevel multifactorial degenerative findings of the lumbar spine. Findings include moderate to severe spinal canal stenosis at L4-L5. There is also moderate left neural foraminal stenosis at L3-L4 and moderate right neural foraminal stenosis at L5-S1. Electronically Signed By: Sai Martinez MD On: 12/26/24 1344 Dictated By: Sai Martinez MD 12/26/24 0820 Signed By: Sai Martinez MD 12/26/24 1344 Milly Landa DO [address] [place], [address], [facility] 12/28/2024 08:19:40 Problems Name Problem SNOMED Code Status Onset Date Resolution Date Notes Provider Name and Address Organization Details Recorded Time Opioid dependence 17916540 Active 2019 Milly Landa DO [address] [place], [address], [facility] 4 09:49:15 Allergic rhinitis 13423685 Active 2020 FREDA Perry, [facility] 14:22:14 Depressive disorder 94421017 Active 2020 FREDA Perry, [facility] 14:22:23 Pain in lower limb 30296843 Completed 202012/29/2020 Lida Cole null, [facility] 11:52:18 Generalized anxiety disorder 69792575 Active 2020 Radha Eller CECILIAA null, [facility] 14:23:09 Psychophysi ologic insomnia 355027863 Active 2020 Radha Eller CCMA null, [facility] 14:23:35 Rheumatoid arthritis 47397879 Active 2020 Radha Eller CCMA null, [facility] 14:23:53 Nicotine dependence 58264467 Active 2020 Radha Eller CCMA null, [facility] 14:24:25 Bilateral cataracts 45007628 Active 2021 Milly DiVito, DO [address] [place], [address], [facility] 2 08:40:57 Chronic obstructive pulmonary disease 53438383 Active 2023 Milly DiVito, DO [address] [place], [address], [facility] 4 09:49:08 Problem Notes None recorded. Procedures Surgical History Date Name Laterality Status Provider Name and Address Organization Details Recorded Time 01/05/20 25 Osteopathic Manipulative Tx cancelled Dasha Sabillon [facility] 12/23/2024 13:36:58 11/06/19 25 Osteopathic Manipulative Tx cancelled Dasha Ridge [facility] 10/23/2024 14:58:25 08/07/19 25 Osteopathic Manipulative Tx completed Milly DiVayse, DO [address] [place], [address], [facility] 08/06/2024 09:08:02 07/10/19 25 Cerumen Removal completed Milly DiVayse, DO [address] [place], [address], [facility] 07/09/2024 09:07:51 07/10/19 25 Osteopathic Manipulative Tx completed Milly DiVito, DO [address], [place], [address], [facility] 07/09/2024 09:07:23 05/15/19 25 Telemedicine Documentation completed Milly DiVito, DO [address] [place], [address], [facility] 05/14/2024 09:08:16 04/18/19 24 Telemedicine Documentation completed Milly DiVito, DO [address] [place], [address], [facility] 04/18/2023 10:21:09 11/01/19 23 cataract completed Tiara Moe LPN [facility] 11/01/2022 17:07:06 06/08/19 23 Telemedicine Documentation completed Milly DiVito, DO [address] [place], [address], [facility] 06/07/2022 15:40:06 03/15/19 23 Tobacco (smoking) Cessation completed Alexandrea Graves MA [facility] 03/13/2022 14:58:12 02/16/20 22 Tobacco (smoking) Cessation completed Alexandrea Graves MA [facility] 02/13/2022 14:45:40 01/16/20 22 Tobacco (smoking) Cessation completed Alexandrea Graves MA [facility] 01/15/2022 08:14:17 12/19/19 22 Tobacco (smoking) Cessation completed Alexandrea Graves MA [facility] 12/12/2021 15:59:04 11/24/19 22 Tobacco (smoking) Cessation completed Alexandrea Graves MA [facility] 11/23/2021 09:00:46 10/27/19 22 Tobacco (smoking) Cessation completed Alexandrea Graves MA [facility] 10/19/2021 15:00:33 09/29/19 22 Tobacco (smoking) Cessation completed Alexandrea Frediani, MA [facility] 09/26/2021 18:39:10 09/08/19 22 Tobacco (smoking) Cessation completed Alexandrea Graves MA [facility] 08/31/2021 10:32:59 08/11/19 22 Tobacco (smoking) Cessation completed Milly Landa, DO [address] [place], [address], [facility] 08/10/2021 16:38:54 07/28/19 22 Tobacco (smoking) Cessation completed Alexandrea Graves MA [facility] 07/25/2021 11:45:19 07/14/19 22 Tobacco (smoking) Cessation completed Milly Landa, DO [address] [place], [address], [facility] 07/13/2021 15:55:22 06/23/19 22 Telemedicine Documentation completed Milly oCrdell, DO [address] [place], [address], [facility] 06/22/2021 18:53:29 03/16/19 22 PHQ-9 Patient Health Questionnaire completed Milly Landa, DO [address] [place], [address], [facility] 03/16/2021 08:50:11 02/10/20 21 PHQ-9 Patient Health Questionnaire completed Milly Cordell, DO [address] [place], [address], [facility] 02/09/2021 11:35:47 discectomy (levels) completed FREDA Perry [facility] 12/15/2020 14:30:19 surgical procedure completed Lida Ford [facility] 12/29/2020 11:53:31 cataract completed Tiara Moe LPN [facility] 11/01/2022 17:07:16 Imaging Results None recorded. Procedure Notes None recorded. Medical Equipment None Reported. Allergies No known drug allergies Medications Name Sig Start Date Stop Date Status Note LastModified by Organization Details LastModified Time Prescript ion - Clarifica tion active Not Available Not Available Not Available cyclobenz aprine 10 mg tablet Take 1 tablet 3 times a day by oral route as needed. 12/29 completed Not Available Not Available Not Available buspirone 5 mg tablet TAKE ONE TABLET BY MOUTH THREE TIMES A DAY 11/26 completed pt states not taking 10/09/24 Not Available Not Available Not Available clonidine HCl 0.1 mg tablet Take 1 tablet 3 times a day by oral route as needed. 12/29 completed Not Available Not Available Not Available prednison e 10 mg tablet 4 tabs po daily for 3 days and then 3 tabs po for 3days, 2 tabs mg po for 3 days and then 1 tab for 3 days. At the end of 3 days resume daily dose of 5mg 04/12 completed Not Available Not Available Not Available nicotine 14 mg/24 hr daily transderm al patch APPLY 1 PATCH TO THE SKIN EVERY DAY 11/26 completed Not Available Not Available Not Available prednison e 20 mg tablet Take 2 tablets every day by oral route for 5 days. 10/13 completed Not Available Not Available Not Available gabapenti n 400 mg capsule TAKE ONE CAPSULE BY MOUTH THREE TIMES A DAY DIRECTED active Not Available Not Available No t Available prednison e 5 mg tablet TAKE ONE TABLET BY MOUTH TWICE A DAY 10/29 completed pt states not taking 10/09/24 Not Available Not Available Not Available nicotine 10 mg inhalatio n cartridge Inhale 1 inhalati on every hour by inhalati on route for 30 days. 11/26 completed pt states not taking 10/09/24 Not Available Not Available Not Available lamotrigi ne 25 mg tablet Take one tablet by mouth once daily for two weeks and then increase to two tablets by mouth daily 12/27 completed Not Available Not Available Not Available ketorolac 0.5 % eye drops INSTILL 1 DROP INTO AFFECTED EYE 3 TIMES DAILY BEGINNIN G 2 DAYS PRIOR TO SURGERY- TAPER DIRECTED 05/15 completed Not Available Not Available Not Available Macrobid 100 mg capsule Take 1 capsule every 12 hours by oral route for 3 days. 09/28 completed Not Available Not Available Not Available prednisol one acetate 1 % eye drops,venkat pension INSTILL 1 DROP INTO AFFECTED EYE 3 TIMES DAILY BEGINNIN G 2 DAYS PRIOR TO SURGERY- TAPER DIRECTED 06/12 completed Not Available Not Available Not Available methotrex ate sodium 2.5 mg tablet TAKE 8 TABLETS BY MOUTH ONCE WEEKLY 11/26 completed pt states not taking 10/09/24 Not Available Not Available Not Available trazodone 150 mg tablet TAKE ONE AND ONE-HALF TABLETS BY MOUTH EVERY DAY active Not Available Not Available No t Available fluoxetin e 20 mg tablet Take 1 tablet every day by oral route. 12/08 completed Not Available Not Available Not Available prednison e 50 mg tablet Take 1 tablet every day by oral route for 5 days. 07/13 completed Not Available Not Available Not Available nicotine 21 mg/24 hr daily transderm al patch Apply 1 patch every day by transder mal route. 11/26 completed patient states not taking Not Available Not Available Not Available gabapenti n 300 mg capsule TAKE ONE CAPSULE BY MOUTH EVERY DAY 10/29 completed Not Available Not Available Not Available folic acid 1 mg tablet TAKE ONE TABLET BY MOUTH EVERY DAY 11/26 completed pt states not taking 10/09/24 Not Available Not Available Not Available hydroxyzi ne HCl 25 mg tablet TAKE 1 TABLET BY MOUTH DAILY AT BEDTIME 11/26 completed pt states not taking 10/09/24 Not Available Not Available Not Available levofloxa sandrita 750 mg tablet Take 1 tablet every day by oral route for 7 days. 10/26 completed Not Available Not Available Not Available methylpre dnisolone 4 mg tablets in a dose pack TAKE SIX TABLETS FOR 1 DAY, THEN FIVE TABLETS FOR 1 DAY, THEN FOUR TABLETS FOR 1 DAY,THEN THREE TABLETS FOR 1 DAY, THEN TWO TABLETS FOR 1 DA active Not Available Not Available No t Available albuterol sulfate HFA 90 mcg/actua tion aerosol inhaler INHALE 2 PUFFS BY MOUTH EVERY 4 HOURS NEEDED FOR 17 DAYS active Not Available Not Available No t Available fluoxetin e 20 mg capsule 12/08 completed Not Available Not Available Not Available dicyclomi ne 10 mg capsule Take 1 capsule 3 times a day by oral route. 11/04 /2021 completed Not Available Not Available Not Available lamotrigi ne 100 mg tablet TAKE ONE TABLET BY MOUTH EVERY DAY 11/26 completed pt states not taking 10/09/24 Not Available Not Available Not Available azithromy sandrita 500 mg tablet Take 1 tablet every day by oral route for 5 days. 04/12 completed Not Available Not Available Not Available buprenorp kristine 8 mg-naloxo ne 2 mg sublingua l tablet Place 1 tablet twice a day by sublingu al route for 28 days. 05/11 completed Not Available Not Available Not Available Allergy Relief (loratadi ne) 10 mg tablet TAKE ONE TABLET BY MOUTH ONCE EVERY DAY DIRECTED 11/26 completed pt states not taking 10/09/24 Not Available Not Available Not Available moxifloxa sandrita 0.5 % eye drops INSTILL 1 DROP INTO AFFECTED EYE 3 TIMES DAILY BEGINNIN G 2 DAYS PRIOR TO SURGERY - TAPER DIRECTED 01/24 completed Not Available Not Available Not Available aripipraz ole 5 mg tablet TAKE ONE TABLET BY MOUTH EVERY DAY 11/26 completed pt states not taking 10/09/24 Not Available Not Available Not Available duloxetin e 30 mg capsule,d elayed release TAKE THREE CAPSULES BY MOUTH EVERY DAY 11/26 completed pt states not taking 10/09/24 Not Available Not Available Not Available duloxetin e 60 mg capsule,d elayed release TAKE 1 CAPSULE BY MOUTH ONCE DAILY 04/12 completed Not Available Not Available Not Available quetiapin e 50 mg tablet TAKE ONE TO TWO TABLETS BY MOUTH DAILY AT BEDTIME 10/02 completed Not Available Not Available Not Available buprenorp kristine 8 mg-naloxo ne 2 mg sublingua l film PLACE 1 FILM UNDER THE TONGUE TWICE DAILY active Not Available Not Available No t Available Incruse Ellipta 62.5 mcg/actua tion powder for inhalatio n INHALE ONE PUFF BY MOUTH EVERY DAY 11/26 completed pt states not taking 10/09/24 Not Available Not Available Not Available Children' s Flonase Allergy Relief 50 mcg/actua tion nasal spray,venkat p spray 1 spray every day by intranas al route 11/26 completed pt states not taking 10/09/24 Not Available Not Available Not Available Humira(CF ) 40 mg/0.4 mL subcutane ous syringe kit inject 40mg subq every 2 weeks 2024 active Not Available Not Available Not Avai lable Humira(CF ) Pen 40 mg/0.4 mL subcutane ous kit active Not Available Not Available Not Available Vitals Date Recorded Body height Body mass index (BMI) Body weight Heart rate Oxygen saturation Oxygen saturation in Arterial blood by Pulse oximetry Systolic And Diastolic Provider Name and Address Organization Details Last Updated DateTime 5 175.26 cm 22.2 kg/m2 28723.8 6 g 60 /min 99 % 99 % 120/74 mm[Hg] Tiara Moe [facility] 5 08:46:33 Date Recorded Body height Heart rate Systolic And Diastolic Provider Name and Address Organization Details Last Updated DateTime 10/09/2024 175.26 cm 60 /min 113/68 mm[Hg] [facility] 10/09/2024 09:17:53 Date Recorded Body height Body mass index (BMI) Body weight Heart rate Oxygen saturation Oxygen saturation in Arterial blood by Pulse oximetry Systolic And Diastolic Provider Name and Address Organization Details Last Updated DateTime 5 175.26 cm 22.1 kg/m2 93167.0 6 g 58 /min 97 % 97 % 108/80 mm[Hg] Tiara Moe [facility] 5 08:47:55 Date Recorded Body height Body mass index (BMI) Body weight Heart rate Oxygen saturation Oxygen saturation in Arterial blood by Pulse oximetry Systolic And Diastolic Provider Name and Address Organization Details Last Updated DateTime 5 175.26 cm 22.2 kg/m2 72069.8 6 g 75 /min 98 % 98 % 120/80 mm[Hg] Tiara Moe [facility] 08:52:40 Date Recorded Body height Body mass index (BMI) Body weight Oxygen saturation Oxygen saturation in Arterial blood by Pulse oximetry Heart rate Systolic And Diastolic Provider Name and Address Organization Details Last Updated DateTime 5 175.26 cm 22.2 kg/m2 98930.8 6 g 97 % 97 % 60 /min 130/70 mm[Hg] Tiara Moe LPN [facility] 08:50:28 Social History Question Answer Notes LastModified by Organizat ion Details LastModified Time Tobacco Smoking Status Current Every Day Smoker RADHA Cook, [facility] 12/29/2020 13:42:52 Do You Have An Advance Directive? Yes Jeanne Hardenmoises Information not available 09/06/2022 What Is Your Code Status? Full Code Information not available 09/06/2022 What Was The Date Of Your Most Recent Tobacco Screening? 10/09/2024 Information not available 10/09/2024 What Is Your Current Pack Years? 30ormorepac kyears [email or web address] Information not available 04/12/2022 What Is Your Relationship Status? Information not available 10/09/2024 How Much Tobacco Do You Smoke? 1 PPD <1 Ppd [email or web address] Information not available 04/12/2022 Has Tobacco Cessation Counseling Been Provided? Yes Information not available 05/11/2021 On What Date Was Tobacco Cessation Counseling Provided? 04/13/2021 Information not available 05/11/2021 How Many Years Have You Smoked Tobacco? 30 Information not available 12/29/2020 Sex: Male Functional Status Question Answer Note LastModified by Organization D etails LastModified Time Do you or have you ever used any other forms of tobacco or nicotine? No Information not available 12/29/2020 Mental Status None recorded. Family History Relationship Description Onset Age of this Age Resolved Age Notes LastModified by Organization Details LastModified Time Mother Harmful pattern of use of alcohol [email or web address] Not available 2020 14:31:53 Mother Rheumatoid arthritis [email or web address] Not available 2020 14:32:06 Father Myocardial infarction [email or web address] Not available 12/15 14:32:18 Medical History No medical history recorded. Immunizations Vaccine Type Date Status Note Provider Nam rajani and Address Organization Details Recorded Time pneumococcal polysaccharide PPV23 8 completed Milly DiVito, DO [address] [place] [address], [place], [address], [facility] 02/09/2021 11:34:06 COVID-19 vaccine, vector-nr, rS-Ad26, PF, 0.5 mL 1 completed Milly DiVito, [address], [place], [address], [facility] 02/09/2021 11:34:06 Influenza, split virus, quadrivalent, preservative 1 completed Not Available [facility] 12/18/2021 13:54:40 Tdap 0 completed Milly DiVito, [address], [place], [address], [facility] 03/08/2021 13:57:17 Influenza, split virus, trivalent, preservative 5 completed Milly DiVito, [address], [place], [address], [facility] 02/09/2021 11:34:06 Influenza, MDCK, quadrivalent, PF 1 completed Milly DiVito, [address], [place], [address], [facility] 02/09/2021 11:34:06 Influenza, split virus, quadrivalent, PF 8 completed Milly DiVito, [address], [place], [address], [facility] 02/09/2021 11:34:06 COVID-19, mRNA, LNP-S, PF, 100 mcg/0.5mL dose or 50 mcg/0.25mL dose 1 completed Milly DiVito, [address], [place], [address], [facility] 03/08/2021 13:57:17 COVID-19, mRNA, LNP-S, bivalent, PF, 50 mcg/0.5 mL or 25mcg/0.25 mL dose 2 completed Not Available [facility] 12/24/2024 08:44:34 Influenza, split virus, quadrivalent, PF 2 completed Not Available [facility] 12/24/2024 08:44:34 Past Encounters Encounter ID Performer Location Encounter Start Date Encounter Closed Date Diagnosis/Indication Diagnosis SNOMED-CT Code Diagnosis ICD10 Code Diagnosis IMO Codes Diagnosis Note [id number] Gabriele Skaggs MD [facility] Rheumatol og [address] [address] 12/22/2019 16:33:11 12/23/2019 15:07:49 Rheumatoid arthritis 09945181 M06.9 Pain of mu ltiple joints 72144947 M25.50 Musculoskeletal pain 279 245654 M79.10 Bilateral lateral elbow tendinopathy 6887199667 5272219 M77.11 M77.12 Tendinitis of right rotator cuff 9823932710 1211220 M67.731 [id number] Milly Landa [address] [address] 12/29/2020 17:00:37 12/29/2020 17:56:45 Opioid dependence 61923618 F11.20 bimonthly visit started on 12/29/20 2 consistenc ies- 12/08 , 12/15, 12/22 pending06/27 inconsiste ncies 09/21- ran out of medication 10/13 failed pill count, 11/02 and 11/17- amphetamin e, 12/08- adderallTo x screen ordered Suboxone 8-2mg 1 tab BID #28Encoura ged Counsellin gf/u x2 week Rheumatoid arthritis 698 14780 M06.9 improved with high dose prednisone Cont prednisone 5mg po dailyCont methotrexa te 2.5mg 8 tabs weekly(20m g) Generalize d anxiety disorder 60145935 F41.1 controlled cont with Buspar and duloxitine Depressive disorder 3548 9007 F32.A cont with duloxitine Requires vaccination 723 400269 Z28.3 shingrix dueAlso needs Covid booster- discussed pfizer or moderna booster as had J&J [id number] Milly Landa [address] [address] 01/13/2021 11:47:23 01/13/2021 12:07:31 Opioid dependence 70818727 F11.20 bimonthly visit started on 12/29/20 2/2 consistenc ies- 12/08 , 12/15, inconsiste ncies 09/21- ran out of medication 10/13 failed pill count, 11/02 and 11/17- amphetamin e, 12/08- adderall, 12/29/20 adderallTo x screen ordered Suboxone 8-2mg 1 tab BID #28Encoura ged Counsellin gf/u x2 week [id number] Milly Aditi[address] [address] 01/26/2021 11:33:36 01/26/2021 11:58:24 Opioid dependence 97258542 F11.20 bimonthly visit started on 12/29/2002/26 consistenc ies in bimonthly- inconsiste ncies 09/21- ran out of medication 10/13 failed pill count, 11/02 and 11/17- amphetamin e, 12/08- adderall, 12/29/20 adderallTo x screen ordered Suboxone 8-2mg 1 tab BID #28Encoura ged Counsellin gf/u x2 week Rheumatoid arthritis 698 99675 M06.9 improved with high dose prednisone Increase prednisone 5mg po BIDCont methotrexa te 2.5mg 8 tabs weekly(20m g) [id number] Milly Landa[address] [address] 02/09/2021 11:01:18 02/09/2021 12:02:51 Opioid dependence 53746991 F11.20 bimonthly visit started on 12/29/2002/26 consistenc ies in bimonthly- inconsiste ncies 09/21- ran out of medication 10/13 failed pill count, 11/02 and 11/17- amphetamin e, 12/08- adderall, 12/29/20 adderallTo x screen ordered Suboxone 8-2mg 1 tab BID #28Encoura ged Counsellin gf/u x2 week Rheumatoid arthritis 698 54334 M06.9 Cont prednisone 5mg po BIDCont methotrexa te 2.5mg 8 tabs weekly(20m g)Complete d Blood work for Dr skaggs Generalize d anxiety disorder 87553080 F41.1 controlled cont with Buspar and duloxitine Encouragin g counseling - patient resistent [id number] Milly Landa [address] [address] 03/08/2021 13:16:16 03/08/2021 14:41:07 Opioid dependence 74904085 F11.20 telehealth to to covid exposure 2/2 consistenc ies in bimonthly- 01/13/21, inconsiste ncies 09/21- ran out of medication 10/13 failed pill count, 11/02 and 11/17- amphetamin e, 12/08- adderall, 12/29/20 adderallTo x screen ordered Suboxone 8-2mg 1 tab BID #14Encoura ged Counsellin gf/u 1 week [id number] Milly Landa [address] [address] 03/16/2021 08:42:14 03/16/2021 09:16:55 Opioid dependence 07631224 F11.20 monthly visit 2/2 consistenc ies in bimonthly- 01/13/21, inconsiste ncies 09/21- ran out of medication 10/13 failed pill count, 11/02 and 11/17- amphetamin e, 12/08- adderall, 12/29/20 adderallTo x screen ordered Suboxone 8-2mg 1 tab BID #56Encoura ged Counsellin gf/u 4 week Rheumatoid arthritis 698 38754 M06.9 Cont prednisone 5mg po BIDCont methotrexa te 2.5mg 8 tabs weekly(20m g)Complete d Blood work for Dr skaggs Generalize d anxiety disorder 29913765 F41.1 controlled cont with Buspar and duloxitine Encouragin g counseling - patient resistent [id number] Milly Landa [address] [address] 04/13/2021 09:41:17 04/13/2021 10:27:05 Opioid dependence 36457817 F11.20 monthly visit 2/2 consistenc ies in bimonthly- 01/13/21, /3 inconsiste ncies 09/21- ran out of medication 10/13 failed pill count, 11/02 and 11/17- amphetamin e, 12/08- adderall, 12/29/20 adderallTo x screen ordered Suboxone 8-2mg 1 tab BID #56Encoura ged Counsellin gf/u 4 week Post-traum atic stress disorder 47384369 F43.10 Watch friend get run over Rheumatoid arthritis 698 69292 M06.9 Cont prednisone 5mg po BIDCont methotrexa te 2.5mg 8 tabs weekly(20m g)Complete d Blood work for Dr skaggs [id number] Milly Landa, [address] [address] 05/11/2021 09:45:31 05/11/2021 10:31:24 Opioid dependence 27870342 F11.20 monthly visit 2 consistenc ies in bimonthly- 01/13/21, 3 inconsiste ncies - 12/08- adderall, 12/29/20 adderall, No buprenophi ne on 04/13/20Tox screen ordered Suboxone 8-2mg 1 tab BID #56[facility] gf/u 4 week Rheumatoid arthritis 698 11223 M06.9 Cont prednisone 5mg po BIDCont methotrexa te 2.5mg 8 tabs weekly(20m g)Check ESR and CRP at each flare prior to prednisone use Screening for malignant neoplasm of colon 002701962 Z12.11 Body mass index 20-24 - normal 044945089 Z68.24 [id number] Gabriele Skaggs MD [facility] Rheumatol og [address] [facility] [address] [place] [address] 05/22/2021 08:11:34 05/22/2021 10:17:02 Seropositive rheumatoid arthritis 861125327 M05.9 - There is possible joint synovitis involving the right hand on today's musculoske letal phyiscal examinatio n- Mr. Coates's most recent inflammato ry markers were within normal limits- It is possible that Mr. Espanas rheumatoid arthritis remains active at this time- I have discussed additional rheumatoid arthritis treatment options with Mr. Coates during today's visit- I have recommende d increasing his Methotrexa te dosage to 25 mg weekly- I have also discussed adding biologic therapy for better control of his rheumatoid arthritis symptoms- He requested Humira therapy and I will have the nursing staff prior authorizat ion for the use of Humira- I have also recommende d attempting to wean down and off of Prednisone therapy if his symptoms allow- I have provided Mr. Coates with a prescripti on for Humira during today's visit- I have also provided Mr. Coates with precriptio n refills for Methotrexa te and Prednisone during today's visit manager long term care methotrexate user [id number] Z79.899 - Mr. Coates is currently taking Methotrexa te 20 mg weekly for treatment of seropositi ve rheumatoid arthritis- I have recommende d increasing his Methotrexa te doage to 25 mg weekly for better control of his rheumatoid arthritis joint symptoms- I will continue to obtain every 3 month Methotrexa te toxicity blood work High risk medication monitoring indicated [id number] Z76.89 - Currently taking Methotrexa te and Prednisone co-therapy for treatment of rheumatoid arthritis- I have recommende d adding biologic therapy and increasing his Methotrexa te dosage for better control of his rheumatoid arthritis symptoms- I have recommende d weaning down and off of chronic Prednisone therapy if his joint symptoms improve by initiating biologic therapy and by increasing his Methotrexa te dosage- I will continue to obtain every 3 month Methotrexa te toxicity blood work Rheumatoid arthritis 698 19727 M06.9 - There is possible joint synovitis involving the right hand on today's musculoske letal phyiscal examinatio n- Mr. Coates's most recent inflammato ry markers were within normal limits- It is possible that Mr. Espanas rheumatoid arthritis remains active at this time- I have discussed additional rheumatoid arthritis treatment options with Mr. Coates during today's visit- I have recommende d increasing his Methotrexa te dosage to 25 mg weekly- I have also discussed adding biologic therapy for better control of his rheumatoid arthritis symptoms- He requested Humira therapy and I will have the nursing staff prior authorizat ion for the use of Humira- I have also recommende d attempting to wean down and off of Prednisone therapy if his symptoms allow- I have provided Mr. Coates with a prescripti on for Humira during today's visit- I have also provided Mr. Coates with precriptio n refills for Methotrexa te and Prednisone during today's visit [id number] Milly Landa [address] [address] 06/08/2021 11:17:09 06/08/2021 12:22:01 Opioid dependence 57749044 F11.20 bimonthly 2/2 consistenc ies in bimonthly- 01/13/21, inconsiste ncies - No buprenophi ne on 04/13/20, 05/11/21- adderallTo x screen ordered Suboxone 8-2mg 1 tab BID #28[facility] gf/u 2 week Rheumatoid arthritis 698 00669 M06.9 Cont prednisone 5mg po BIDCont methotrexa te 2.5mg 8 tabs weekly(20m g)Started HumiraCont to follow with Dr Skaggs Body mass index 20-24 - normal 981227779 Z68.24 Allergic rhinitis 099109 04 J30.9 [id number] Milly Landa [address] [address] 06/22/2021 11:19:20 06/26/2021 15:16:10 Opioid dependence 59149510 F11.20 weekly 2/2 consistenc ies in bimonthly- 01/13/21, inconsiste ncies - No buprenophi ne on 04/13/20, 05/11/21- adderall, 06/08/21 AdderallTo x screen ordered will do tomorrow Suboxone 8-2mg 1 tab BID #14[facility] gf/u 1 week Rheumatoid arthritis 698 85960 M06.9 Cont prednisone 5mg po BIDCont methotrexa te 2.5mg 8 tabs weekly(20m g)Started HumiraCont to follow with Dr Skaggs [id number] Milly Landa DO [address] [address] 06/29/2021 15:15:12 06/29/2021 16:28:58 Opioid dependence 61724636 F11.20 weekly 0/2 consistenc ies in weekly4/3 inconsiste ncies - No buprenophi ne on 04/13/20, 05/11/21- adderall, 06/08/21 Adderall, 06/21- never completed due to illness, 5 pendingTox screen order Suboxone 8-2mg 1 tab BID #14[facility] gf/u 1 week Viral screening [id number] 4 Z11.52 Exposure t o SARS-CoV-2 210289137 Z20.828 COVID-19 453622702 U07.1 - covid testing performed and you are Positive via rapid testing-mo nitor pulse ox- if pos-Rest, increase fluids-tyl enol and ibuprofen for pain-pleas e take over the counter decongesta nts-Quaran yoshi for 5 days or until symptoms are improving and you are fever free off fever reducing agents for 24 hours if you test pos. Then wear mask for another 5 days. If you are still ill at 5 days, please chauncey the office so we can decide if we need to extend your quarantine .-if pos walk around your home every hour, sleep prone, call if worsening or is pulse ox is below 92%- Zinc, Vitamin D, Vit C and melatonin may help -please call office with any questions [id number] Milly Landa DO [address] [address] 07/06/2021 16:53:07 07/07/2021 07:40:11 Opioid dependence 24165496 F11.20 weekly 0/2 consistenc ies in weekly4/3 inconsiste ncies - No buprenophi ne on 04/13/20, 05/11/21- adderall, 06/08/21 Adderall, 06/21- never completed due to illness, 5 pendingTox screen order Suboxone 8-2mg 1 tab BID #14[facility] gf/u 1 week COVID-19 680207156 U07.1 -Rest, increase fluids -tylenol and ibuprofen for pain -please take over the counter decongesta nts -if not improving in 3-5 days or if you develop fever, please call the office for re-evaluat ion Pneumonia 002286939 J18. 9 cont with prednisone 50mg po dailyCont with levaquin 750mg po daily [id number] Milly Landa [address] [address] 07/13/2021 15:19:25 07/13/2021 16:03:46 Opioid dependence 11798219 F11.20 Biweekly 1/2 consistenc ies in weekly on inconsiste ncies - No buprenophi ne on 04/13/20, 05/11/21- adderall, 06/08/21 Adderall, 06/21- never completed due to illness, 06/27 pendingTox screen order Suboxone 8-2mg 1 tab BID #28[facility] gf/u 1 week Pneumonia 880939951 J18. 9 resolving- still [place] base [place]- clears with cough nowcont with mucinex for 1 more week. 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 Rheumatoid arthritis 698 71627 M06.9 Cont prednisone 5mg po BIDCont methotrexa te 2.5mg 8 tabs weekly(20m g)Started HumiraCont to follow with Dr Skaggs [id number] Milly Landa [address] [address] 07/27/2021 15:39:47 08/02/2021 08:05:04 Opioid dependence 03227054 F11.20 Biweekly 0/2 consistenc ies in biweekly2/ 2 consistenc ies in weekly on 07/06/21, inconsiste ncies - No buprenophi ne on 04/13/20, 05/11/21- adderall, 06/08/21 Adderall, 06/21- never completed due to illness, 06/29 amphetamin eTox screen order Suboxone 8-2mg 1 tab BID #28[facility] gf/u 1 week Rheumatoid arthritis 698 10914 M06.9 Cont prednisone 5mg po BIDCont methotrexa te 2.5mg 8 tabs weekly(20m g)Cont HumiraCont to follow with Dr Skaggs Tobacco de pendence syndrome 26185885 F17.200 using inhaler- cutting back was at 2 ppd and now down to 3/4 ppd. [id number] Milly Landa [address] [address] 08/03/2021 15:41:39 08/07/2021 11:45:17 Opioid dependence 75015164 F11.20 inaccurate film count- short by 6 films [id number] Millymadeline Landa [address] [address] 08/10/2021 16:25:02 08/10/2021 16:54:43 Opioid dependence 00336740 F11.20 Monthly /2 consistenc ies in biweekly 07/27/21, consistenc ies in weekly on 07/06/21, inconsiste ncies - No buprenophi ne on 04/13/20, 05/11/21- adderall, 06/08/21 Adderall, 06/21- never completed due to illness, 06/29 amphetamin eTox screen order Suboxone 8-2mg 1 tab BID #56[facility] gf/u 1 week Rheumatoid arthritis 698 45753 M06.9 Cont prednisone 5mg po BIDCont methotrexa te 2.5mg 8 tabs weekly(20m g)Cont HumiraCont to follow with Dr Skaggs Tobacco de pendence syndrome 12497589 F17.200 using inhaler- cutting back was at 2 ppd and now down to 3/4 ppd. [id number] Milly Landa [address] [address] 09/07/2021 16:30:32 09/07/2021 17:00:02 Opioid dependence 76008501 F11.20 Monthly 3/2 consistenc ies in biweekly 07/27/21, 08/03/21, consistenc ies in weekly on 07/06/21, inconsiste ncies - No buprenophi ne on 04/13/20, 05/11/21- adderall, 06/08/21 Adderall, 06/21- never completed due to illness, 06/29 amphetamin eTox screen order Suboxone 8-2mg 1 tab BID #56[facility] gf/u 1 week Rheumatoid arthritis 698 41125 M06.9 Cont prednisone 5mg po BIDCont methotrexa te 2.5mg 8 tabs weekly(20m g)Cont HumiraCont to follow with Dr Skaggs [id number] Milly Landa DO [address] [address] 09/28/2021 16:12:51 09/28/2021 17:00:59 Opioid dependence 31330733 F11.20 Monthly 04/26 consistenc ies in biweekly 07/27/21, 08/03/21, consistenc ies in weekly on 07/06/21, inconsiste ncies - No buprenophi ne on 04/13/20, 05/11/21- adderall, 06/08/21 Adderall, 06/21- never completed due to illness, 06/29 amphetamin eTox screen order Suboxone 8-2mg 1 tab BID #56[facility] gf/u 1 week Rheumatoid arthritis 698 31307 M06.9 Cont prednisone 5mg po BIDCont methotrexa te 2.5mg 8 tabs weekly(20m g)Cont HumiraCont to follow with Dr Skaggs [id number] Milly Landa DO [address] [address] 10/26/2021 15:29:05 10/26/2021 17:42:35 Opioid dependence 97996646 F11.20 Monthly 04/26 consistenc ies in biweekly 07/27/21, 08/03/21, consistenc ies in weekly on 07/06/21, inconsiste ncies - No buprenophi ne on 04/13/20, 05/11/21- adderall, 06/08/21 Adderall, 06/21- never completed due to illness, 5/5 amphetamin eTox screen order Suboxone 8-2mg 1 tab BID #56[facility] gf/u 1 week Rheumatoid arthritis 698 26344 M06.9 Cont prednisone 5mg po BIDCont methotrexa te 2.5mg 8 tabs weekly(20m g)Cont HumiraCont to follow with Dr Pastrana bloodwork for Dr Skaggs today [id number] Milly Landa [address] [address] 11/23/2021 16:37:48 11/23/2021 17:29:21 Opioid dependence 43910633 F11.20 Monthly 3/2 consistenc ies in biweekly 07/27/21, 08/03/21, consistenc ies in weekly on 07/06/21, inconsiste ncies - No buprenophi ne on 04/13/20, 05/11/21- adderall, 06/08/21 Adderall, 06/21- never completed due to illness, 5/5 amphetamin eTox screen order Suboxone 8-2mg 1 tab BID #56[facility] gf/u 3 week and in 5 weeks [id number] Milly Landa [address] [address] 12/18/2021 13:49:10 12/18/2021 15:05:26 Opioid dependence 90054566 F11.20 Monthly 3/2 consistenc ies in biweekly 07/27/21, 08/03/21, consistenc ies in weekly on 07/06/21, inconsiste ncies - No buprenophi ne on 04/13/20, 05/11/21- adderall, 06/08/21 Adderall, 06/21- never completed due to illness, 5/5 amphetamin eTox screen order Suboxone 8-2mg 1 tab BID #56[facility] gf/u 4 weeks Depressive disorder 3548 9007 F32.A increase duloxetine 90mg po daily [id number] Milly Landa [address] [address] 01/15/2022 08:30:27 01/15/2022 08:55:46 Opioid dependence 99385061 F11.20 Monthly 3/2 consistenc ies in biweekly 07/27/21, 08/03/21, consistenc ies in weekly on 07/06/21, 3 inconsiste ncies - No buprenophi ne on 04/13/20, 05/11/21- adderall, 06/08/21 Adderall, 06/21- never completed due to illness, 06/29 amphetamin eTox screen order Suboxone 8-2mg 1 tab BID #56[facility] gf/u 4 weeks Depressive disorder 3188 9007 F32.A increase duloxetine 90mg po daily Bilateral cataracts 9572 2003 H26.9 having surgery tomorrow Generalize d anxiety disorder 24283764 F41.1 controlled cont with Buspar and duloxitine [facility] counseling - patient resistent Allergic rhinitis 294460 04 J30.9 Post-traum atic stress disorder 19824813 F43.10 Watch friend get run over Rheumatoid arthritis 698 23578 M06.9 Cont prednisone 5mg po BIDCont methotrexa te 2.5mg 8 tabs weekly(20m g)Cont HumiraCont to follow with Dr Pastrana bloodwork for Dr Skaggs today Psychophys iologic insomnia 845035642 F51.04 [id number] Milly Landa [address] [address] 02/15/2022 15:57:53 02/15/2022 17:49:09 Opioid dependence 64499049 F11.20 Monthly 3/2 consistenc ies in biweekly 07/27/21, 08/03/21, consistenc ies in weekly on 07/06/21, 3 inconsiste ncies - No buprenophi ne on 04/13/20, 05/11/21- adderall, 06/08/21 Adderall, 06/21- never completed due to illness, 5 amphetamin eTox screen order Suboxone 8-2mg 1 tab BID #56[facility] gf/u 4 weeks Depressive disorder 3548 9007 F32.A increase duloxetine 90mg po daily Bilateral cataracts 9572 2003 H26.9 Had left done and having right done soon.Very pleased Generalize d anxiety disorder 57312616 F41.1 controlled cont with Buspar and duloxitine [facility] counseling - patient resistent Post-traum atic stress disorder 63248912 F43.10 Watch friend get run over Rheumatoid arthritis 698 93777 M06.9 Cont prednisone 5mg po BIDCont methotrexa te 2.5mg 8 tabs weekly(20m g)Cont HumiraCont to follow with Dr Pastrana bloodwork for Dr Edinson jacobson Psychophys iologic insomnia 448759180 F51.04 [id number] Milly Landa DO [address] [address] 03/15/2022 15:41:55 03/15/2022 17:33:35 Opioid dependence 28948070 F11.20 Monthly 04/26 consistenc ies in biweekly 07/27/21, 08/03/21, 2 consistenc ies in weekly on 07/06/21, /3 inconsiste ncies - No buprenophi ne on 04/13/20, 05/11/21- adderall, 06/08/21 Adderall, 06/21- never completed due to illness, 5 amphetamin eTox screen order Suboxone 8-2mg 1 tab BID #56[facility] gf/u 4 weeks Depressive disorder 3548 9007 F32.A increase duloxetine 90mg po daily Generalize d anxiety disorder 37542814 F41.1 controlled cont with Buspar and duloxitine [facility] counseling - patient resistent Post-traum atic stress disorder 28204452 F43.10 Watch friend get run over Rheumatoid arthritis 698 15415 M06.9 Cont prednisone 5mg po BIDCont methotrexa te 2.5mg 8 tabs weekly(20m g)Cont HumiraCont to follow with Dr Pastrana bloodwork for Dr Skaggs today Psychophys iologic insomnia 099045238 F51.04 Pneumonia 316455526 J18. 9 LLL rhonchicon t with mucinexpre dnisone taperAzith romycin 500mg po daily for 5 daysmay need chest x-ray if not improving [id number] Milly Landa [address] [address] 04/12/2022 13:27:02 04/12/2022 14:31:31 Opioid dependence 27663063 F11.20 Monthly 3/ consistenc ies in biweekly 07/27/21, 08/03/21, consistenc ies in weekly on 07/06/21, inconsiste ncies - No buprenophi ne on 04/13/20, 05/11/21- adderall, 06/08/21 Adderall, 06/21- never completed due to illness, 06/29 amphetamin eTox screen order Suboxone 8-2mg 1 tab BID #56[facility] gf/u 4 weeks Depressive disorder 3548 9007 F32.A increase duloxetine 90mg po daily Generalize d anxiety disorder 85673396 F41.1 controlled cont with Buspar and duloxitine [facility] counseling - patient resistent Post-traum atic stress disorder 92327080 F43.10 Watch friend get run over Rheumatoid arthritis 698 54131 M06.9 Cont prednisone 5mg po BIDCont methotrexa te 2.5mg 8 tabs weekly(20m g)Cont HumiraCont to follow with Dr Pastrana bloodwork for Dr Skaggs today Psychophys iologic insomnia 633996590 F51.04 Pneumonia 289949129 J18. 9 resolved, but still wheezingCo nt with albuterol prn Chronic ob structive pulmonary disease 39043397 J44.9 [id number] Milly Landa [address] [address] 05/10/2022 16:14:44 05/10/2022 17:33:13 Opioid dependence 32849123 F11.20 Entrance 0/2 consistenc ies in biweekly0/ 2 consistenc ies in weekly1/3 inconsiste ncies - Valium on 05/10/22- overdoseUr ine tox Suboxone 8-2mg 1 tab BID #14[facility] gf/u 4 weeks Depressive disorder 3548 9007 F32.A ? bipolar 2Start mood stablizer- seroquel 50mg po dailyincre ase duloxetine 90mg po daily Generalize d anxiety disorder 58985023 F41.1 controlled cont with Buspar and duloxitine [facility] counseling - patient resistent Rheumatoid arthritis 698 12792 M06.9 Cont prednisone 5mg po BIDCont methotrexa te 2.5mg 8 tabs weekly(20m g)Cont HumiraCont to follow with Dr Skaggs Psychophys iologic insomnia 782233666 F51.04 stop trazodone and hydroxyzin eStart seroquel 50mg po 1-2 [facility] Chronic ob structive pulmonary disease 03145868 J44.9 [id number] Milly Landa [address] [address] 05/17/2022 16:41:59 05/18/2022 08:32:23 Opioid dependence 37241219 F11.20 Entrance 0/2 consistenc ies in biweekly0/ 2 consistenc ies in weekly1/3 inconsiste ncies - Valium on 05/10/22- overdoseUr ine tox Suboxone 8-2mg 1 tab BID #14[facility] gf/u 1 weeks Benzodiaze pine dependence 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 [id number] Milly Landa [address] [address] 05/24/2022 14:59:45 05/24/2022 16:44:29 Opioid dependence 03426358 F11.20 Entrance 0/2 consistenc ies in biweekly0/ 2 consistenc ies in weekly2/3 inconsiste ncies - Valium on 05/10/22- overdose, 05/17/22Uri ne tox Suboxone 8-2mg 1 tab BID #14[facility] gf/u 1 weeks Benzodiaze pine dependence 153213105 F13.20 Patient found a bottle of valium in his house and took 40 tabs over a 2 days period of timewife found him almost - denies SI attempt.estefania garcía is still withdrawin g from the overdose Recurrent major depression 22158039 F33.9 Not well controlled -? bipolaron Duloxitine 90mg po dailyBuspa r 5mg po BIDCont with Seroquel 50mg po 1-2 tab at bedtime.Estefania garcía with probable bipolar disorder and will need mood stabilizat ion when benzo out of his system. [id number] Milly Landa [address] [address] 05/31/2022 09:22:56 05/31/2022 10:47:48 Opioid dependence 59704598 F11.20 Entrance 0/2 consistenc ies in biweekly0/ 2 consistenc ies in weekly2/3 inconsiste ncies - Valium on 05/10/22- overdose, 05/17/22Uri ne tox Suboxone 8-2mg 1 tab BID #14[facility] gf/u 1 weeks Benzodiaze pine dependence 149188230 F13.20 Patient found a bottle of valium in his house and took 40 tabs over a 2 days period of timewife found him almost - denies SI attempt.Wi thdrawal is now improving Recurrent major depression 94414176 F33.9 Not well controlled -? bipolaron duloxetine 90mg po dailyBuspa r 5mg po BIDCont with Seroquel 50mg po 1-2 tab at bedtime.Estefania garcía with probable bipolar disorder and will need mood stabilizat ion when benzo out of his system. Psychophys iologic insomnia 278344910 F51.04 stop trazodone and hydroxyzin eStart seroquel 50mg po 1-2 at [facility] Depressive disorder 3548 9007 F32.A ? bipolar 2Start mood stablizer- seroquel 50mg po dailyincre ase duloxetine 90mg po daily [id number] Milly Landa [address] [address] 06/07/2022 10:10:21 06/12/2022 15:02:31 Opioid dependence 70359916 F11.20 Entrance 0/2 consistenc ies in biweekly1/ 2 consistenc ies in weekly inconsiste ncies - Valium on 05/10/22- overdose, 05/17/22Uri ne tox Suboxone 8-2mg 1 tab BID #14[facility] gf/u 1 weeks Benzodiaze pine dependence 128036141 F13.20 Patient found a bottle of valium in his house and took 40 tabs over a 2 days period of timewife found him almost - denies SI attempt.Wi thdrawal is now improvingb rocky levels are now coming down- took 2 weeks to even start to come down Recurrent major depression 84992398 F33.9 Not well controlled -? bipolaron duloxetine 90mg po dailyBuspa r 5mg po BIDCont with Seroquel 50mg po 1-2 tab at bedtime.Estefania garcía with probable bipolar disorder and will need mood stabilizat ion when benzo out of his system. Psychophys iologic insomnia 036810748 F51.04 stop trazodone and hydroxyzin eStart seroquel 50mg po 1-2 at [facility] Depressive disorder 3548 9007 F32.A ? bipolar 2Start mood stablizer- seroquel 50mg po dailyincre ase duloxetine 90mg po daily Rheumatoid arthritis 698 67413 M06.9 Cont prednisone 5mg po BIDCont methotrexa te 2.5mg 8 tabs weekly(20m g)Cont HumiraCont to follow with Dr Skaggs Allergic rhinitis 573014 04 J30.9 [id number] Milly Landa [address] [address] 06/14/2022 10:23:28 06/14/2022 11:35:16 Opioid dependence 81766846 F11.20 Moved to Bimonthly 06/14/22 0/2 consistenc ies in biweekly2/ 2 consistenc ies in weekly 05/31, /3 inconsiste ncies - Valium on 05/10/22- overdose, 05/17/22Uri ne tox Suboxone 8-2mg 1 tab BID #14[facility] gf/u 1 weeks Benzodiaze pine dependence 112312021 F13.20 Patient found a bottle of valium in his house and took 40 tabs over a 2 days period of timewife found him almost - denies SI attempt.Wi thdrawal is now improvingb rocky out of his system last week Recurrent major depression 13401087 F33.9 Not well controlled -? bipolaron duloxetine 90mg po dailyBuspa r 5mg po BIDCont with Seroquel 50mg po 1-2 tab at bedtime.Estefania garcía with probable bipolar disorder and will need mood stabilizat ionTrial of Lamictal 25mg po daily for 2 weeks and then increase to 2 tabs po daily Psychophys iologic insomnia 930107834 F51.04 stop trazodone and hydroxyzin eStart seroquel 50mg po 1-2 [facility] Depressive disorder 3548 9007 F32.A ? bipolar 2Start mood stablizer- seroquel 50mg po dailyincre ase duloxetine 90mg po daily Rheumatoid arthritis 698 71302 M06.9 Cont prednisone 5mg po BIDCont methotrexa te 2.5mg 8 tabs weekly(20m g)Cont HumiraCont to follow with Dr Skaggs Allergic rhinitis 379099 04 J30.9 Chronic ob structive pulmonary disease 33090919 J44.9 Controlled Cont with Incruse daily Eruption 304732843 R21 + rash on the left LE that looks vascular- + blanchingh appen after trama- will cont to monitor and recheck in 2 weeks [id number] Milly Landa DO [address] [address] 06/28/2022 09:29:37 06/28/2022 10:06:40 Opioid dependence 45414251 F1.20 Moved to Bimonthly 06/14/22 1/2 consistenc ies in biweekly consistenc ies in weekly 05/31, inconsiste ncies - Valium on 05/10/22- overdose, 05/17/22Uri ne tox Suboxone 8-2mg 1 tab BID #14[facility] gf/u 1 weeks Benzodiaze pine dependence 212372052 F13.20 Patient found a bottle of valium in his house and took 40 tabs over a 2 days period of timewife found him almost - denies SI attempt.Wi thdrawal is now improvingb rocky out of his system Recurrent major depression 76116673 F33.9 Mood improvedon duloxetine 90mg po dailyBuspa r 5mg po BIDCont with Seroquel 50mg po 1-2 tab at bedtime.Estefania tient with probable bipolar disorder and will need mood stabilizat ionincreas e Lamictal 50 mg po daily for 2 weeks Psychophys iologic insomnia 614825706 F51.04 stop trazodone and hydroxyzin eStart seroquel 50mg po 1-2 at hs Rheumatoid arthritis 698 56228 M06.9 Cont prednisone 5mg po BIDCont methotrexa te 2.5mg 8 tabs weekly(20m g)Cont HumiraCont to follow with Dr Skaggs Eruption 149970897 R21 + rash on the left LE that looks vascular- + blanchingh appen after trama? causerefer ral to derm [id number] Milly Landa DO [address] [address] 07/12/2022 10:36:32 07/12/2022 12:16:01 Opioid dependence 73029108 F11.20 Moved monthly 07/12/22 2/2 consistenc ies in biweekly 06/14/22, consistenc ies in weekly 05/31, 3 inconsiste ncies - Valium on 05/10/22- overdose, 05/17/22Uri ne tox Suboxone 8-2mg 1 tab BID #14[facility] gf/u 1 weeks Benzodiaze pine dependence [id number] F13.20 Patient found a bottle of valium in his house and took 40 tabs over a 2 days period of timewife found him almost - denies SI attempt.Wi thdrawal is now improvingb rocky out of his systemneed to monitor closely- was due to depression Recurrent major depression 72755417 F33.9 Mood improvedon duloxetine 90mg po dailyBuspa r 5mg po BIDCont with Seroquel 50mg po 1-2 tab at bedtime.Estefania garcía with probable bipolar disorder and will need mood stabilizat ionincreas e Lamictal 100mg Psychophys iologic insomnia 461177168 F51.04 stop trazodone and hydroxyzin eStart seroquel 50mg po 1-2 at hs Rheumatoid arthritis 698 41716 M06.9 Cont prednisone 5mg po BIDCont methotrexa te 2.5mg 8 tabs weekly(20m g)Cont HumiraCont to follow with Dr Skaggs Eruption [id number] R21 + rash on the left LE that looks vascular- + blanchingh appen after trama? causeBiops y pendinghas follow up next week on Saturday Chronic ob structive pulmonary disease 39907032 J44.9 Controlled Cont with Incruse daily [id number] [facility] [address] [address] 08/03/2022 13:45:21 08/15/2022 14:57:14 Opioid dependence 86249516 F11.20 filled on 07/12/2321 days since last fill#56 films given at last fill19 films left7 films xtralots numbers the sameaccept able urine given [id number] Milly Landa, DO [address] [address] 08/09/2022 10:07:13 08/09/2022 11:04:59 Opioid dependence 32967866 F11.20 Moved monthly 07/12/22 2/2 consistenc ies in biweekly 06/14/22, consistenc ies in weekly 05/31, /3 inconsiste ncies - Valium on 05/10/22- overdose, 05/17/22Uri ne tox Last random pill count and utox done 08/03/22 Suboxone 8-2mg 1 tab BID #14[facility] gf/u 1 weeks Benzodiaze pine dependence 562813421 F13.20 Patient found a bottle of valium in his house and took 40 tabs over a 2 days period of timewife found him almost - denies SI attempt.Wi thdrawal is now improvingb rocky out of his systemneed to monitor closely- was due to depression Recurrent major depression 81186545 F33.9 Mood improvedon duloxetine 90mg po dailyBuspa r 5mg po BIDCont with Seroquel 50mg po 1-2 tab at bedtime.Estefania tient with probable bipolar disorder and will need mood stabilizat ionincreas e Lamictal 100mg Psychophys iologic insomnia 931235793 F51.04 tried seroquel and this did not worked- tried 4 of them and still didn't workGo back to trazodone 50-100mg po nightly Rheumatoid arthritis 698 64657 M06.9 Cont prednisone 5mg po BIDCont methotrexa te 2.5mg 8 tabs weekly(20m g)Cont HumiraCont to follow with Dr Skaggs Eruption [id number] R21 + rash on the left LE that looks vascular- + blanchingh appen after trama? causeBiops y was normaltold it was secondary to the heatcheck lyme today Chronic ob structive pulmonary disease 16999310 J44.9 Controlled Cont with Incruse daily [id number] Milly Landa DO [address] [address] [place] [address] 09/06/2022 10:07:44 09/06/2022 10:56:20 Opioid dependence 95484382 F11.20 Moved monthly 07/12/22 2/2 consistenc ies in biweekly 06/14/22, / consistenc ies in weekly 05/31, /3 inconsiste ncies - Valium on 05/10/22- overdose, 05/17/22Uri ne tox Last random pill count and utox done 08/03/22Las t utox 08/09/2022- appropriat e Suboxone 8-2mg 1 tab BID #14[facility] gf/u 1 weeks Benzodiaze pine dependence [id number] F13.20 had overdose on benzo's in recent past.Not in urine- staying away from them Recurrent major depression 46984417 F33.9 Mood improvedon duloxetine 90mg po dailyBuspa r 5mg po BIDCont with Seroquel 50mg po 1-2 tab at bedtime.Estefania ricky with probable bipolar disorder and will need mood stabilizat ionCont Lamictal 100mg Psychophys iologic insomnia 916623304 F51.04 tried seroquel and this did not worked- tried 4 of them and still didn't workGo back to trazodone 50-100mg po nightly Rheumatoid arthritis 698 86479 M06.9 Cont prednisone 5mg po BIDCont methotrexa te 2.5mg 8 tabs weekly(20m g)Cont HumiraCont to follow with Dr Skaggs Eruption 666674589 R21 + rash on the left LE that looks vascular- + blanchingh appen after trama? causeBiops y was normaltold it was secondary to the heatcheck lyme today Chronic ob structive pulmonary disease 96896466 J44.9 Controlled Cont with Incruse daily [id number] Milly Landa DO [address] [address] [place] [address] 10/04/2022 16:01:42 10/04/2022 16:51:12 Opioid dependence 97432881 F11.20 Moved monthly 07/12/22 2/2 consistenc ies in biweekly 06/14/22, / consistenc ies in weekly 05/31, /3 inconsiste ncies - Valium on 05/10/22- overdose, 05/17/22Uri ne tox Last random pill count and utox done 08/03/22Las t utox done 09/06/22- appropriat e. Suboxone 8-2mg 1 tab BID #14[facility] gf/u 1 weeks Pre-surger y evaluation [id number] Z01.818 Patient is medically optimizedf or cataract surgery Cataract of right eye 81 8198837 H26.9 Patient is medically optimizedf or cataract surgery Generalize d anxiety disorder 40650810 F41.1 controlled cont with Buspar and duloxetine [facility] counseling - patient resistent Depressive disorder 3548 9007 F32.A ? bipolar 2Start mood stablizer- seroquel 50mg po dailyCont duloxetine 90mg po daily Rheumatoid arthritis 698 36657 M06.9 Cont prednisone 5mg po BIDCont methotrexa te 2.5mg 8 tabs weekly(20m g)Cont HumiraCont to follow with Dr Skaggs [id number] Milly Landa [address] [address] 11/01/2022 16:40:28 11/14/2022 19:35:53 Opioid dependence 44382741 F11.20 Moved monthly 07/12/22 2/2 consistenc ies in biweekly 06/14/22, 42/2 consistenc ies in weekly 05/31, /3 inconsiste ncies - Valium on 05/10/22- overdose, 05/17/22Uri ne tox Last random pill count and utox done 08/03/22Las t utox done 10/04/22- appropriat e. Suboxone 8-2mg 1 tab BID #14[facility] gf/u 1 weeks Generalize d anxiety disorder 34392418 F41.1 controlled cont with Buspar and duloxetine [facility] counseling - patient resistent Rheumatoid arthritis 698 18224 M06.9 Cont prednisone 5mg po BIDCont methotrexa te 2.5mg 8 tabs weekly(20m g)Cont HumiraCont to follow with Dr Edinson Osorio [id number] Patient fell off the stool in the room and landed on the left buttock and left shoulderFe lt fine after. [id number] Milly Landa DO [address] [address] 11/29/2022 09:40:55 11/29/2022 10:06:29 Opioid dependence 22637604 F11.20 Moved monthly 07/12/22 2/2 consistenc ies in biweekly 06/14/22, 42/2 consistenc ies in weekly 05/31, /3 inconsiste ncies - Valium on 05/10/22- overdose, 05/17/22Uri ne tox Last random pill count and utox done 08/03/22Las t utox done 11/01/22- pos for benzos- due to eye surgery Suboxone 8-2mg 1 tab BID #56[facility] gf/u 4 weeks Rheumatoid arthritis 698 56301 M06.9 Cont prednisone 5mg po BIDCont methotrexa te 2.5mg 8 tabs weekly(20m g)Cont HumiraCont to follow with Dr Skaggs [id number] Gabriele Skaggs MD [facility] Rheumatol [facility]gy [address] [place] [address] 12/17/2022 13:48:03 12/17/2022 14:38:59 Seropositive rheumatoid arthritis 615255932 M05.9 - There is no obvious joint synovitis on today's musculoske letal physical examinatio n- Mr. Espanas most recent inflammato ry markers were within normal limits- Mr. Espanas rheumatoid arthritis is seemingly stable/griffin escent at this time while receiving every other week Humira therapy as well as taking Methotrexa te 20 mg weekly amd Prednisone 10 mg daily- I have recommende d continuing to receive every other week Humira therapy and taking Methotrexa te 20 mg weekly as he is doing- I have also recommende d attempting to wean down and off of Prednisone therapy if his symptoms allow- I have provided Mr. 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 Coates is currently taking Methotrexa te 20 mg weekly for treatment of seropositi ve rheumatoid arthritis- I have recommende d continuing to take Methotrexa te 20 mg weekly as he is doing- I will continue to obtain every 3 month toxicity blood work while her remains on Methotrexa te therapy- I have stressed the importance of having regular blood work while taking Methotrexa te therapy High risk medication monitoring indicated [id number] Z76.89 - Mr. Coates is currently receiving every other week Humira therapy as well as Methotrexa te and Prednisone for treatment of rheumatoid arthritis- I have recommende d continuing to receive every other week Humira therapy and taking Methotrexa te 20 mg weekly as he is doing- I have also recommende d attempting to wean down and off of Prednisone therapy if his symptoms allow- I have provided Mr. Coates with a prescripti on refill for Prednisone during today's visit- I will continue to obtain every 3 month toxicity blood work while her remains on Methotrexa te therapy- I have stressed the importance of having regular blood work while taking Methotrexa te therapy- I will also obtain a hepatitis panel and quantifero n gold assay given his use of chronic immunosupp ression [id number] Milly Landa [address] [address] 12/27/2022 10:39:54 12/27/2022 11:15:41 Opioid dependence 17662812 F11.20 Moved monthly 07/12/22 2/ consistenc ies in biweekly 06/14/22, consistenc ies in weekly 05/31, / inconsiste ncies - Valium on 05/10/22- overdose, 05/17/22Uri ne tox Last random pill count and utox done 08/03/22uto x done 11/01/22- pos for benzos- due to eye surgerylas t utox 11/29/22- appropriat e. Suboxone 8-2mg 1 tab BID #56[facility] gf/u 4 weeks Depressive disorder 5958 9007 F32.A probable bipolar 2Cont mood stablizer- seroquel 50mg po dailyCont duloxetine 90mg po daily Generalize d anxiety disorder 61105200 F41.1 controlled cont with Buspar and duloxetine Enc[facility] counseling - patient resistant Insomnia 428299085 F51.0 9 fair controlCon t trazodone prn [id number] Milly Landa [address] [address] 01/24/2023 10:01:36 01/24/2023 10:41:04 Opioid dependence 79484639 F11.20 Moved monthly 07/12/22/ inconsiste ncies - did not leave urin on 12/27Urine tox Last random pill count and utox done 08/03/22 utox done 11/01/22- pos for benzos- due to eye surgerylas t utox 11/29/22- appropriat e. Suboxone 8-2mg 1 tab BID #56[facility] gf/u 4 weeks Depressive disorder 3548 9007 F32.A probable bipolar 2Cont mood stablizer- seroquel 50mg po dailyCont duloxetine 90mg po daily Generalize d anxiety disorder 74851268 F41.1 controlled cont with Buspar and duloxetine Encouragin g counseling - patient resistant Insomnia 269816026 F51.0 9 fair controlCon t trazodone prn Seropositi ve rheumatoid arthritis 344617282 M05.9 stablecont with methotrexa te and prednisone 5mg po daily [id number] Milly Landa DO [address] [address] 02/21/2023 08:57:14 02/21/2023 09:25:38 Opioid dependence 25471426 F11.20 Moved monthly 07/12/22 1/3 inconsiste ncies - did not leave urin on 12/27Urine tox Last random pill count and utox done 08/03/22 utox done 11/01/22- pos for benzos- due to eye surgerylas t utox 01/24/23- appropriat e Suboxone 8-2mg 1 tab BID #56[facility] gf/u 4 weeks Depressive disorder 3548 9007 F32.A probable bipolar 2Cont mood stablizer- seroquel 50mg po dailyCont duloxetine 90mg po daily Generalize d anxiety disorder 61035929 F41.1 controlled cont with Buspar and duloxetine Enc[facility]agin g counseling - patient resistant Insomnia 885695191 F51.0 9 fair controlCon t trazodone prn Seropositi ve rheumatoid arthritis 460434087 M05.9 stablecont with methotrexa te and prednisone 5mg po daily Psychophys iologic insomnia 676649824 F51.04 tried seroquel and this did not worked- tried 4 of them and still didn't workGo back to trazodone 50-100mg po nightly Rheumatoid arthritis 698 93376 M06.9 Cont prednisone 5mg po BIDCont methotrexa te 2.5mg 8 tabs weekly(20m g)Cont HumiraCont to follow with Dr Skaggs [id number] Milly Landa [address] [address] 03/21/2023 08:59:02 03/21/2023 09:52:12 Opioid dependence 43463355 F11.20 Moved monthly 07/12/2202/27 inconsiste ncies - did not leave urine on 12/27Urine tox Last random pill count and utox done 08/03/22 utox done 11/01/22- pos for benzos- due to eye surgerylas t utox 02/21/23- appropriat e Suboxone 8-2mg 1 tab BID #56[facility] gf/u 4 weeks Depressive disorder 8328 9007 F32.A probable bipolar 2d/c mood stablizer- seroquel 50mg po daily- too much weight gainStart abilify 5mg po dailyCont duloxetine 90mg po daily Generalize d anxiety disorder 68168360 F41.1 controlled cont with Buspar and duloxetine Enc[facility] g counseling - patient resistant Insomnia 392968774 F51.0 9 fair controlCon t trazodone prn Seropositi ve rheumatoid arthritis 371548993 M05.9 Wors[address] with methotrexa te and prednisone 5mg po daily Psychophys iologic insomnia 625884535 F51.04 tried seroquel and this did not worked- tried 4 of them and still didn't workGo back to trazodone 50-100mg po nightly Smoking mo nitoring status 908965302 Z76.89 [id number] Milly Landa [address] [address] 04/18/2023 07:35:13 04/18/2023 10:48:57 Opioid dependence 09463881 F11.20 Moved monthly 07/12/2202/27 inconsiste ncies - did not leave urine on 12/27Urine tox Last random pill count and utox done 08/03/22 utox done 11/01/22- pos for benzos- due to eye surgerylas t utox 03/21/23- appropriat e Suboxone 8-2mg 1 tab BID #56[facility] gf/u 4 weeks Depressive disorder 3548 9007 F32.A probable bipolar 2d/c mood stablizer- seroquel 50mg po daily- too much weight gainStart abilify 5mg po dailyCont duloxetine 90mg po daily Generalize d anxiety disorder 94593792 F41.1 controlled cont with Buspar and duloxetine Enc[facility] counseling - patient resistant Psychophys iologic insomnia 309424553 F51.04 Controlled Cont trazodone 150 po nightly Chronic ob structive pulmonary disease 92871058 J44.9 Controlled Cont with Incruse daily Recurrent major depression 65716930 F33.9 Mood improved-P atient with probable bipolar disorder- responded to mood stablizers on duloxetine 90mg po dailyBuspa r 5mg po BIDCont Abilify 5mg po nightlyCon t Lamictal 100mg Rheumatoid arthritis 698 53518 M06.9 Cont prednisone 5mg po BIDCont methotrexa te 2.5mg 8 tabs weekly(20m g)Cont HumiraCont to follow with Dr Skaggs Nodule of lung 195118600 R91.1 Pet scan ordered yesterday with patient consent- if denied by insurance will repeat low dose lung CT in 3 month [id number] Milly Landa DO [address] [address] [place] [address] 05/16/2023 08:28:18 05/16/2023 09:00:19 Opioid dependence 08027340 F11.20 Moved monthly 07/12/22 1/ inconsiste ncies - did not leave urine on 12/27utox done 11/01/22- pos for benzos- due to eye surgerylas t utox 04/18/23- appropriat e Last random pill count and utox done 08/03/22 Suboxone 8-2mg 1 tab BID #56[facility] gUrine toxf/u 4 weeks Depressive disorder 3589 9007 F32.A probable bipolar 2d/c mood stablizer- seroquel 50mg po daily- too much weight gainStart abilify 5mg po dailyCont duloxetine 90mg po daily Generalize d anxiety disorder 34760623 F41.1 controlled cont with Buspar and duloxetine Enc[facility]agin g counseling - patient resistant Seropositi ve rheumatoid arthritis 646728215 M05.9 Wors[address]c [address] with methotrexa te and prednisone 5mg po daily Psychophys iologic insomnia 906445873 F51.04 tried seroquel and this did not worked- tried 4 of them and still didn't work- weight was increasing Go back to trazodone 50-100mg po nightly Multiple n odules of lung 939595234 R91.8 patient with 10mm nodule in the fissure of the lung that is concerning for malignancy PET CT to r/o malignancy - schedule for 05/22/23 [id number] Milly Landa, [address] [address] 06/13/2023 08:59:57 06/13/2023 09:36:29 Opioid dependence 21793808 F11.20 Moved monthly 07/12/22 2/3 inconsiste ncies - did not leave urine on 12/27, 11/01/22- pos for benzos- due to eye surgerylas t utox 05/16/23- appropriat e Last random pill count and utox done 08/03/22 Suboxone 8-2mg 1 tab BID #56[facility] gUrine toxf/u 4 weeks Depressive disorder 3548 9007 F32.A stableprob able bipolar 2d/c mood stablizer- seroquel 50mg po daily- too much weight gainStart abilify 5mg po dailyCont duloxetine 90mg po daily Generalize d anxiety disorder 90336701 F41.1 controlled cont with Buspar and duloxetine Encouragin g counseling - patient resistant Psychophys iologic insomnia 317876778 F51.04 Controlled Cont trazodone 50-100mg po nightly Seropositi ve rheumatoid arthritis 272005822 M05.9 Worseningc ont with methotrexa te and humira and prednisone 5mg po bid prn swelling [id number] [facility] [address] [address] 06/20/2023 09:12:58 06/20/2023 09:22:45 Opioid dependence 08566665 F11.20 filled on days since last fill#56 films given at last fill40 films left (appropria te)3 films xtralot numbers the same for 40 remaining; 3 xtra w/ diff lot #urine unable to be provided- pt late for work and left after 3 unsuccessf ul attempts; consumed 2 fenton. [id number] Milly [facility] [address] [address] 07/11/2023 08:26:15 07/11/2023 09:26:26 Opioid dependence 43523658 F11.20 Moved monthly 07/12/22 2/ inconsiste ncies - did not leave urine on 12/27, no urine on 06/19/23. 07/11/23las t utox 05/16/23- appropriat e Last random pill count and utox done 06/19/23- failed- did not eave a urine Suboxone 8-2mg 1 tab BID #28[facility] gUrine toxf/u 2 weeks Depressive disorder 3548 9007 F32.A stableprob able bipolar 2d/c mood stablizer- seroquel 50mg po daily- too much weight gainCont abilify 5mg po dailyCont duloxetine 90mg po daily Generalize d anxiety disorder 18772171 F41.1 controlled cont with Buspar prn and duloxetine 90mg dailyEncou raging counseling - patient resistant Psychophys iologic insomnia 026685782 F51.04 Controlled Cont trazodone 50-100mg po nightly [id number] [address] [address] 07/25/2023 09:59:04 07/25/2023 10:51:52 Opioid dependence 28545953 F11.20 Moved monthly 07/12/22 3/3 inconsiste ncies - no urine on 06/19/23 and 07/11/23, did admit adderral use on 07/10 Last utox 05/16/23- appropriat eLast random pill count and utox done 06/19/23- failed- did not leave a urine Suboxone 8-2mg 1 tab BID #28[facility] gUrine toxf/u 2 weeks Depressive disorder 3548 9007 F32.A stableprob able bipolar 2d/c mood stablizer- seroquel 50mg po daily- too much weight gainCont abilify 5mg po dailyCont duloxetine 90mg po daily Generalize d anxiety disorder 53668335 F41.1 controlled cont with Buspar prn and duloxetine 90mg dailyEncou raging counseling - patient resistant Psychophys iologic insomnia 119595267 F51.04 Controlled Cont trazodone 50-100mg po nightly Diastasis recti 86725558 M62.08 described the nature of the diseasenot repairedst art planks exercise Seropositi ve rheumatoid arthritis 075073624 M05.9 Worseningc ont with methotrexa te and humira and prednisone 5mg po bid prn swelling Chronic ob structive pulmonary disease 15131244 J44.9 Controlled Cont with Incruse daily [id number] Milly Landa DO [address] [address] 08/08/2023 08:59:59 08/08/2023 09:43:52 Opioid dependence 63710125 F11.20 bimonthly 1/2 consistenc ies on / inconsiste ncies - no urine on 06/19/23 and 07/11/23, did admit adderall use on 07/10 Last random pill count and utox done 06/19/23- failed- did not leave a urineLast utox 07/15/23- appropriat e Suboxone 8-2mg 1 tab BID #28[facility] gUrine toxf/u 2 weeks Depressive disorder 4308 9007 F32.A stableprob able bipolar 2d/c mood stablizer- seroquel 50mg po daily- too much weight gainCont abilify 5mg po dailyCont duloxetine 90mg po daily Generalize d anxiety disorder 20164938 F41.1 controlled cont with Buspar prn and duloxetine 90mg dailyEncou raging counseling - patient resistant Psychophys iologic insomnia 860081527 F51.04 Controlled Cont trazodone 50-100mg po nightly Rheumatoid arthritis 698 59353 M06.9 Cont prednisone 5mg po BIDCont methotrexa te 2.5mg 8 tabs weekly(20m g)Cont HumiraCont to follow rheumatolo gy- Dr Skaggs is leaving and will need new doc. [id number] Milly Landa DO [address] [address] 08/28/2023 08:34:03 08/28/2023 08:57:43 Opioid dependence 59666066 F11.20 biweekly 0/2 consistenc ies3/3 inconsiste ncies - no urine on 06/19/23 and 07/11/23, did admit adderall use on 07/10, 08/08/23 Last random pill count and utox done 06/19/23- failed- did not leave a urineutox 08/08/23- pos for amphetamin es. Suboxone 8-2mg 1 tab BID #28[facility] gUrine toxf/u 2 weeks Depressive disorder 3548 9007 F32.A stableprob able bipolar 2d/c mood stablizer- seroquel 50mg po daily- too much weight gainCont abilify 5mg po dailyCont duloxetine 90mg po daily Generalize d anxiety disorder 11606045 F41.1 controlled cont with Buspar prn and duloxetine 90mg dailyEncou raging counseling - patient resistant Psychophys iologic insomnia 739218213 F51.04 Controlled Cont trazodone 50-100mg po nightly Rheumatoid arthritis 698 26881 M06.9 Cont prednisone 5mg po BIDCont methotrexa te 2.5mg 8 tabs weekly(20m g)Cont HumiraCont to follow rheumatolo gy- Dr Skaggs is leaving and will need new doc- will need to follow with Dr Estrada. Chronic ob structive pulmonary disease 03049249 J44.9 Controlled Cont with Incruse daily [id number] [facility] [address] [address] 09/12/2023 11:05:31 09/12/2023 11:37:39 Opioid dependence 65272761 F11.20 n/s his appointmen t on 09/09, showed up in office today.able to leave a utox without issue.last utox 08/28/23 pos for amphetamin es. [id number] Milly Landa DO [address] [address] 09/19/2023 08:18:09 09/19/2023 08:51:40 Opioid dependence 87137808 F11.20 biweekly 0/2 consistenc ies3/3 inconsiste ncies - no urine on 06/19/23 and 07/11/23, did admit adderall use on 07/10, 08/08/23 Last random pill count and utox done 06/19/23- failed- did not leave a urineutox 08/08/23- pos for amphetamin es.utox 08/30- pos for amphetamin esutox 09/11- pending- should be cleaning according to patient Suboxone 8-2mg 1 tab BID #28[facility] Counsellin gUrine toxf/u 2 weeks Depressive disorder 3548 9007 F32.A stableprob able bipolar 2d/c mood stablizer- seroquel 50mg po daily- too much weight gainCont abilify 5mg po dailyCont duloxetine 90mg po daily Generalize d anxiety disorder 06111736 F41.1 controlled cont with Buspar prn and duloxetine 90mg dailyEncou raging counseling - patient resistant Psychophys iologic insomnia 412662324 F51.04 Controlled Cont trazodone 50-100mg po nightly Rheumatoid arthritis 698 47765 M06.9 Cont prednisone 5mg po BIDCont methotrexa te 2.5mg 8 tabs weekly(20m g)Cont HumiraCont to follow rheumatolo gy- Dr Skaggs is leaving and will need new doc- will need to follow with Dr Estrada. Chronic ob structive pulmonary disease 21166542 J44.9 Controlled Cont with Incruse daily Nodule of lung 861584680 R91.1 Pet scan ordered yesterday with patient consent- if denied by insurance will repeat low dose repeat lung CT in 3-6 month [id number] Milly Landa DO [facility] [address] [address] 10/03/2023 08:23:48 10/03/2023 08:57:52 Opioid dependence 63795199 F11.20 biweekly 0/2 consistenc ies3/3 inconsiste ncies - no urine on 06/19/23 and 07/11/23, did admit adderall use on 07/10, 08/08/23 Last random pill count and utox done 06/19/23- failed- did not leave a urineutox 08/08/23- pos for amphetamin es.utox 08/30- pos for amphetamin esutox 09/11- appropriat eutox 09/19/23- pos amphetamin es Suboxone 8-2mg 1 tab BID #28[facility] Counsellin gUrine toxf/u 2 weeks Depressive disorder 3548 9007 F32.A stableprob able bipolar 2Cont abilify 5mg po dailyCont duloxetine 90mg po daily Generalize d anxiety disorder 62533371 F41.1 controlled cont with Buspar prn and duloxetine 90mg dailyEncou raging counseling - patient resistant Insomnia 890536387 F51.0 9 fair controlCon t trazodone 150mg prn Rheumatoid arthritis 698 80222 M06.9 Cont prednisone 5mg po BIDCont methotrexa te 2.5mg 8 tabs weekly(20m g)Cont HumiraCont to follow rheumatolo gy- needs new Rheumatolo gy [id number] Milly Landa, [address] [address] 10/17/2023 09:13:42 10/17/2023 09:44:05 Opioid dependence 19326987 F11.20 biweekly 1/2 consistenc ies - /3 inconsiste ncies - no urine on 06/19/23 and 07/11/23, did admit adderall use on 07/10, 08/08/23 Last random pill count and utox done 06/19/23- failed- did not leave a urineutox 08/08/23- pos for amphetamin es.utox 08/30- pos for amphetamin esutox 09/11- appropriat eutox 09/19/23- pos amphetamin es last utox 10/03/23- appropriat e Suboxone 8-2mg 1 tab BID #28[facility] Counsellin gUrine toxf/u 2 weeks Depressive disorder 3548 9007 F32.A stableprob able bipolar 2Cont abilify 5mg po dailyCont duloxetine 90mg po daily Generalize d anxiety disorder 71863459 F41.1 controlled cont with Buspar prn and duloxetine 90mg dailyEncou raging counseling - patient resistant Insomnia 682907016 F51.0 9 fair controlCon t trazodone 150mg prn Rheumatoid arthritis 698 95466 M06.9 Cont prednisone 5mg po BIDCont methotrexa te 2.5mg 8 tabs weekly(20m g)Cont HumiraCont to follow rheumatolo gy [id number] Milly Pennington[address] [address] 10/31/2023 09:09:44 10/31/2023 09:44:28 Opioid dependence 76634588 F11.20 moved to monthly on 10/31/23- YAY 2/2 consistenc ies - 10/03/23, / inconsiste ncies - no urine on 06/19/23 and 07/11/23, did admit adderall use on 07/10, 08/08/23 Last random pill count and utox done 06/19/23- failed- did not leave a urineutox 08/08/23- pos for amphetamin es.utox 08/30- pos for amphetamin esutox 09/11- appropriat eutox 09/19/23- pos amphetamin es last utox 10/17/23- appropriat e Suboxone 8-2mg 1 tab BID #28[facility] Counsell[facility] gUrine toxf/u 2 weeks Depressive disorder 3548 9007 F32.A stableprob able bipolar 2Cont abilify 5mg po dailyCont duloxetine 90mg po daily Generalize d anxiety disorder 81747413 F41.1 controlled cont with Buspar prn and duloxetine 90mg dailyEncou raging counseling - patient resistant Insomnia 240863330 F51.0 9 fair controlCon t trazodone 150mg prn Rheumatoid arthritis 698 96699 M06.9 Cont prednisone 5mg po BIDCont methotrexa te 2.5mg 8 tabs weekly(20m g)Cont HumiraCont to follow rheumatolo gy [id number] [facility] [address] [address] 11/28/2023 09:08:48 11/28/2023 10:03:43 Opioid dependence 60924948 F11.20 moved to monthly on 10/31/23- 2/2 consistenc ies - 10/03/23, inconsiste ncies - no urine on 06/19/23 and 07/11/23, did admit adderall use on 07/10, 08/08/23 Last random pill count and utox done 06/19/23- failed- did not leave a urineutox 08/08/23- pos for amphetamin es.utox 08/30- pos for amphetamin esutox 09/11- appropriat eutox 09/19/23- pos amphetamin es last utox 10/31/23- appropriat e. Suboxone 8-2mg 1 tab BID #28[facility] Counsellin gUrine toxf/u 2 weeks Depressive disorder 3548 9007 F32.A stableprob able bipolar 2Cont abilify 5mg po dailyCont duloxetine 90mg po daily Generalize d anxiety disorder 66319968 F41.1 controlled cont with Buspar prn and duloxetine 90mg dailyEncou raging counseling - patient resistant Insomnia 083004692 F51.0 9 fair controlCon t trazodone 150mg prn Rheumatoid arthritis 698 29784 M06.9 Cont prednisone 5mg po BIDCont methotrexa te 2.5mg 8 tabs weekly(20m g)Cont HumiraCont to follow rheumatolo gy Seropositi ve rheumatoid arthritis 468401415 M05.9 Worseningc ont with methotrexa te and humira and prednisone 5mg po bid prn swelling [id number] Milly Landa, DO [place] [address] [address] 12/26/2023 09:12:35 12/26/2023 09:55:09 Opioid dependence 01734586 F11.20 moved to monthly on 10/31/23- 2/2 consistenc ies - 10/03/23, / inconsiste ncies - no urine on 06/19/23 and 07/11/23, did admit adderall use on 07/10, 08/08/23 Last random pill count and utox done 06/19/23- failed- did not leave a urineutox 08/08/23- pos for amphetamin es.utox 7/6- pos for amphetamin esutox 09/11- appropriat eutox 09/19/23- pos amphetamin es last utox 11/28/23- appropriat e. Suboxone 8-2mg 1 tab BID #28[facility] Counsellin gUrine toxf/u 2 weeks Depressive disorder 3548 9007 F32.A stableprob able bipolar 2Cont abilify 5mg po dailyCont duloxetine 90mg po daily Generalize d anxiety disorder 01753735 F41.1 controlled cont with Buspar prn and duloxetine 90mg dailyEncou raging counseling - patient resistant Insomnia 421863918 F51.0 9 fair controlCon t trazodone 150mg prn Rheumatoid arthritis 698 33314 M06.9 Cont prednisone 5mg po BIDCont methotrexa te 2.5mg 8 tabs weekly (20mg)Cont HumiraCont to follow rheumatolo gy Seropositi ve rheumatoid arthritis 686611566 M05.9 Worseningc ont with methotrexa te and humira and prednisone 5mg po bid prn swelling Chronic ob structive pulmonary disease 44887982 J44.9 Controlled Cont with Incruse dailyAlbut breanna prn Recurrent major depression 86082157 F33.9 Mood improved-P atient with probable bipolar disorder- responded to mood stablizers on duloxetine 90mg po dailyBuspa r 5mg po BIDCont Abilify 5mg po nightlyCon t Lamictal 100mg [id number] Milly Landa DO [address] [address] 02/06/2024 09:04:34 02/06/2024 10:02:37 Opioid dependence 83956999 F11.20 moved to monthly on 10/31/23 4/2 consistenc ies - 10/03/23, 10/17/23, 10/31/23, /3 inconsiste ncies - no urine on 06/19/23 and 07/11/23, did admit adderall use on 07/11/23 and 08/08/23 Last random pill count and utox done 06/19/23- failed- did not leave a urineutox 08/08/23- pos for amphetamin es.utox 08/31/23- pos for amphetamin esutox 09/12/23- appropriat eutox 09/19/23- pos amphetamin esutox 10/03/23- appropriat eutox 10/17/23- appropriat eutox 10/31/23- appropriat eutox 11/28/23- appropriat e last utox 12/27/23- appropriat e. Suboxone 8-2mg 1/2 tab po daily (Has about 100 at home due to weaning on his own)Encour aged Counsellin gUrine toxf/u 4 weeks Depressive disorder 3548 9007 F32.A stableprob able bipolar 2Cont abilify 5mg po dailyCont duloxetine 90mg po daily Generalize d anxiety disorder 24452054 F41.1 controlled cont with Buspar prn and duloxetine 90mg dailyEncou raging counseling - patient resistant Insomnia 048598832 F51.0 9 fair controlCon t trazodone 150mg prn Rheumatoid arthritis 698 35172 M06.9 Cont prednisone 5mg po BIDCont methotrexa te 2.5mg 8 tabs weekly (20mg)Cont HumiraCont to follow rheumatolo gy Seropositi ve rheumatoid arthritis 567461346 M05.9 Worseningc ont with methotrexa te and humira and prednisone 5mg po bid prn swelling Chronic ob structive pulmonary disease 46226064 J44.9 Controlled Cont with Incruse dailyAlbut breanna prn Recurrent major depression 95251686 F33.9 Mood improved-P atient with probable bipolar disorder- responded to mood stablizers on duloxetine 90mg po dailyBuspa r 5mg po BIDCont Abilify 5mg po nightlyCon t Lamictal 100mg [id number] Milly Landa, DO [address] [address] 03/05/2024 09:02:08 03/05/2024 10:20:52 Opioid dependence 92846346 F11.20 moved to monthly on 10/31/23 4/2 consistenc ies - 10/03/23, 10/17/23, 10/31/23, / inconsiste ncies - no urine on 06/19/23 and 07/11/23, did admit adderall use on 07/11/23 and 08/08/23 Last random pill count and utox done 06/19/23- failed- did not leave a urineutox 08/08/23- pos for amphetamin es.utox 08/31/23- pos for amphetamin esutox 09/12/23- appropriat eutox 09/19/23- pos amphetamin esutox 10/03/23- appropriat eutox 10/17/23- appropriat eutox 10/31/23- appropriat eutox 11/28/23- appropriat eutox 12/27/23- appropriat e last utox 02/06/24- appropriat e Suboxone 8-2mg 1/2 tab po daily (Has about 100 at home due to weaning on his own)[facility] Counsellin Freida toxf/u 4 weeks Depressive disorder 3548 9007 F32.A stableprob able bipolar 2Cont abilify 5mg po dailyCont duloxetine 90mg po daily Generalize d anxiety disorder 99057809 F41.1 controlled cont with Buspar prn and duloxetine 90mg dailyEncou raging counseling - patient resistant Insomnia 733712600 F51.0 9 fair controlCon t trazodone 150mg prn Rheumatoid arthritis 698 16088 M06.9 Cont prednisone 5mg po BIDCont methotrexa te 2.5mg 8 tabs weekly (20mg)Cont HumiraCont to follow rheumatolo gy Seropositi ve rheumatoid arthritis 537489400 M05.9 Worseningc ont with methotrexa te and humira and prednisone 5mg po bid prn swelling Chronic ob structive pulmonary disease 46765063 J44.9 Controlled Cont with Incruse dailyAlbut breanna prn Recurrent major depression 87296122 F33.9 Mood improved-P atient with probable bipolar disorder- responded to mood stablizers on duloxetine 90mg po dailyBuspa r 5mg po BIDCont Abilify 5mg po nightlyCon t Lamictal 100mg Nodule of lung 985857250 R91.1 + nodules last year on low dose lung CTPET with out uptakerepe at this year Abdominal mass 580832498 R19.[address] and recommend follow upCt abdomen and pelvis Overweight 965108458 E66 .3 BMI 26.6 Folic acid deficiency 19 0729255 E53.8 Psychophys iologic insomnia 224005350 F51.04 Controlled Cont trazodone 50-100mg po nightly [id number] Milly Aditi[address] [address] 04/30/2024 08:50:52 04/30/2024 10:43:10 Opioid dependence 82699886 F11.20 moved to monthly on 10/31/23 Last random pill count and utox done 06/19/23- failed- did not leave a urine last utox 03/05/24- Appropriat e Suboxone 8-2mg 1/2 tab po daily (Has about 100 at home due to weaning on his own)Enc[facility] aged Counsellin gUrine toxf/u 4 weeks Depressive disorder 3548 9007 F32.A stableprob able bipolar 2Cont Abilify 5mg po dailyCont Duloxetine 90mg po daily Generalize d anxiety disorder 40006554 F41.1 controlled cont with Buspar prn and Duloxetine 90mg dailyEncou raging counseling - patient resistant Rheumatoid arthritis 698 41128 M06.9 Cont prednisone 5mg po BIDCont methotrexa te 2.5mg 8 tabs weekly (20mg)Cont HumiraCont to follow rheumatolo gy Chronic ob structive pulmonary disease 24572937 J44.9 Controlled Cont with Incruse dailyAlbut breanna prn Recurrent major depression 63979302 F33.9 Mood improved-P atient with probable bipolar disorder- responded to mood stablizers on duloxetine 90mg po dailyBuspa r 5mg po BIDCont Abilify 5mg po nightlyCon t Lamictal 100mg Nodule of lung 231162028 R91.1 + nodules last year on low dose lung CTPET with out uptakerepe at this year- patient missed appoint ment needs to call Abdominal mass 108968825 R19.00 n/s his CT scan appt on 03/13/24.Th is needs to be reschedule d- gave patient number to call Psychophys iologic insomnia 097732202 F51.04 Controlled Cont trazodone 50-100mg po nightly Pain of knee region 1003 349518 M25.562 04786262 + effusion and pain in the left kneeXR of the knee [id number] Milly Landa[address] [place] [address] 05/14/2024 08:57:41 05/14/2024 10:01:06 Mass of urinary system structure 661339251 N28.89 5746376 + ureteral mass causing hydronephr osisRadiol ogy recommendi ng stat multiphase CT abdomen and pelvis to further characteri zeThis was ordered, but outside of vist and insurance denied.Adonay de leon send this note with CT scans to insurance today for further review Multiple n odules of lung 927562263 R91.8 350603 Increasing in size and concerning for malignancy Referral to pulmonary stat for bronchosco py [id number] Milly Landa DO [address] [address] 06/11/2024 08:21:30 06/11/2024 08:59:06 Opioid dependence 70634001 F11.20 moved to monthly on 10/31/23 Last random pill count and utox done 06/19/23- failed- did not leave a urine last utox 04/30/24- Appropriat e Suboxone 8-2mg 1/2 tab po daily (Has about 100 at home due to weaning on his own)Encour aged Counsellin gUrine toxf/u 4 weeks Depressive disorder 3548 9007 F32.A stableprob able bipolar 2Cont Abilify 5mg po dailyCont Duloxetine 90mg po daily Generalize d anxiety disorder 24151819 F41.1 controlled cont with Buspar prn and Duloxetine 90mg dailyEncou raging counseling - patient resistant Rheumatoid arthritis 698 94496 M06.9 Cont prednisone 5mg po BIDCont methotrexa te 2.5mg 8 tabs weekly (20mg)Cont HumiraCont to follow rheumatolo gy Chronic ob structive pulmonary disease 56364080 J44.9 Controlled Cont with Incruse dailyAlbut breanna prn Recurrent major depression 65310794 F33.9 Mood improved-P atient with probable bipolar disorder- responded to mood stabilizer son duloxetine 90mg po dailyBuspa r 5mg po BIDCont Abilify 5mg po nightlyCon t Lamictal 100mg Nodule of lung 304192186 R91.1 patient with enlarging nodules.Wa s supposed to have bronchosco py, but this was canceled because [facility] doesn't take his insuranceP atient needs to go [facility] Abdominal mass 349048834 R19.00 In the ureter- with weight loss and increasing pain in the left legCT scan of abdomen done 05/09/24-IM PRESSION:T here is moderate left hydronephr osis and left hydrourete r. There is no ureteral stone.Ther e is suggestion of an approximat ava 8 mm soft tissue mass in the mid left ureter. Recommend multiphase CT abdomen and pelvis to further evaluate.R epeatThere is mild left hydronephr osis decreased compared to prior. There is homogeneou s decreased enhancemen t of the left kidney compared to the right.Ther e is partial opacificat ion of the left ureter. There is suggestion of rim enhancemen t of the mid left ureter, concerning for ureteral mass. Direct visualizat ion is advised Psychophys iologic insomnia 200541405 F51.04 Controlled Cont trazodone 50-100mg po nightly Pain of knee region 1003 812007 M25.562 94989157 + effusion and pain in the left kneeXR of the knee done 05/09/24 Pain in le ft lower limb 722558032 M79.605 377589 Patient with increasing pain in the left leg.? Sarah MELISSA's Tobacco de pendence syndrome 25282265 F17.200 86977 using inhaler- cutting back was at 2 ppd and now down to 3/4 ppd. [id number] Milly Landa, DO [address] [address] 07/09/2024 08:29:55 07/09/2024 09:26:42 Opioid dependence 20110365 F11.20 moved to monthly on 10/31/23 Last random pill count and utox done 06/19/23- failed- did not leave a urine last utox 06/11/24- Appropriat e Suboxone 8-2mg 1/2 tab po daily (Has about 100 at home due to weaning on his own)Encour aged Counsellin gUrine toxf/u 4 weeks Nodule of lung 735489774 R91.1 patient with enlarging nodules.Wa s supposed to have bronchosco py, but this was canceled because [facility] doesn't take his insuranceP atient needs to go to [facility] to pul[facility]olog y Abdominal mass 822321164 R19.00 In the ureter- with weight loss and increasing pain in the left legCT scan of abdomen done 05/09/24-IM PRESSION:T here is moderate left hydronephr osis and left hydrourete r. There is no ureteral stone.Ther e is suggestion of an approximat ava 8 mm soft tissue mass in the mid left ureter. Recommend multiphase CT abdomen and pelvis to further evaluate.R epeatThere is mild left hydronephr osis decreased compared to prior. There is homogeneou s decreased enhancemen t of the left kidney compared to the right.Ther e is partial opacificat ion of the left ureter. There is suggestion of rim enhancemen t of the mid left ureter, concerning for ureteral mass. Direct visualizat ion is advised Referred to Urology- pending Pain in le ft lower limb 839071737 M79.604 620509 Patient with increasing pain in the left legABI's- normal so not PAD.pain starts in the groin area and radiates down the leg- ? femoral nerve impingemen t vs lateral femoral nerve impingemen t Depressive disorder 3548 9007 F32.A stableprob able bipolar 2Cont Abilify 5mg po dailyCont Duloxetine 90mg po daily Generalize d anxiety disorder 32119770 F41.1 controlled cont with Buspar prn and Duloxetine 90mg dailyEncou raging counseling - patient resistant Rheumatoid arthritis 698 24692 M06.9 Cont prednisone 5mg po BIDCont methotrexa te 2.5mg 8 tabs weekly (20mg)Cont HumiraCont to follow rheumatolo gy Chronic ob structive pulmonary disease 88477423 J44.9 Controlled Cont with Incruse dailyAlbut breanna prn Recurrent major depression 00648197 F33.9 Mood improved-P atient with probable bipolar disorder- responded to mood stabilizer son duloxetine 90mg po dailyBuspa r 5mg po BIDCont Abilify 5mg po nightlyCon t Lamictal 100mg Psychophys iologic insomnia 906071851 F51.04 Controlled Cont trazodone 50-100mg po nightly Pain of knee region 1003 945650 M25.562 15074934 + effusion and pain in the left kneeXR of the knee done 05/09/24 Impacted c erumen of bilateral ears 5088868840 695081 H61.23 594682 ear flush performed [id number] Milly Landa DO [address] [address] 08/06/2024 08:24:31 08/06/2024 09:24:04 Opioid dependence 77295868 F11.20 moved to monthly on 10/31/23 Last random pill count and utox done 06/19/23- failed- did not leave a urine last utox 06/11/24- Appropriat e Suboxone 8-2mg 1/2 tab po daily (Has about 100 at home due to weaning on his own)Encour aged Counsellin gUrine toxf/u 4 weeks Nodule of lung 839302685 R91.1 patient with enlarging nodules.Wa s supposed to have bronchosco py, but this was canceled because [facility] doesn't take his insuranceP atient needs to go to [facility] to pulmonolog y Pain in le ft lower limb 002075134 M79.602 922166 Patient with increasing pain in the left legABI's- normal so not PAD.pain starts in the groin area and radiates down the leg- ? femoral nerve impingemen t vs lateral femoral nerve impingemen t vs SI impingemen t on the left. Has previous surgery at this level.OMT preformedP atient has been doing home exercise program and doing OMT and has failed treatmentM RI of the lumbar spine, as had surgery at this level in the past. Depressive disorder 8092 4847 F32.A stableprob able bipolar 2Cont Abilify 5mg po dailyCont Duloxetine 90mg po daily Generalize d anxiety disorder 47329461 F41.1 controlled cont with Buspar prn and Duloxetine 90mg dailyEncou raging counseling - patient resistant Rheumatoid arthritis 238 30186 M06.9 Cont prednisone 5mg po BIDCont methotrexa te 2.5mg 8 tabs weekly (20mg)Cont HumiraCont to follow rheumatolo gy Chronic ob structive pulmonary disease 24950522 J44.9 Controlled Cont with Incruse dailyAlbut breanna prn Recurrent major depression 62433361 F33.9 Mood improved-P atient with probable bipolar disorder- responded to mood stabilizer son duloxetine 90mg po dailyBuspa r 5mg po BIDCont Abilify 5mg po nightlyCon t Lamictal 100mgSome evidence of TD- may need congentin Psychophys iologic insomnia 388698393 F51.04 Controlled Cont trazodone 50-100mg po nightly Pain of knee region 1003 846057 M25.562 44816861 + effusion and pain in the left kneeXR of the knee done 05/09/24- normal? secondary to RA flare Mass of ur inary system structure 013533765 N28.89 9836396 In the ureter- with weight loss and increasing pain in the left legCT scan of abdomen done 05/09/24-IM PRESSION:T here is moderate left hydronephr osis and left hydrourete r. There is no ureteral stone.Ther e is suggestion of an approximat ava 8 mm soft tissue mass in the mid left ureter. Recommend multiphase CT abdomen and pelvis to further evaluate.R epeatThere is mild left hydronephr osis decreased compared to prior. There is homogeneou s decreased enhancemen t of the left kidney compared to the right.Ther e is partial opacificat ion of the left ureter. There is suggestion of rim enhancemen t of the mid left ureter, concerning for ureteral mass. Direct visualizat ion is advised Referred to Urology- saw Dr Brown, however they will not take his insurance Somatic dy sfunction of sacral region 721144072 M99.04 221577 Somatic dy sfunction of pelvic region 031379514 M99.05 3085917 Lumbar radiculopathy 128 925180 M54.16 73608 Patient with Left leg pain that is increasing with home exercise program for the last 8 weeksOMT has been performed as wellPrior surgery on [id number] MRI as patient is having trouble walking and trouble with balance [id number] Lior Galvez MD [facility] [address] [place] [address] [address] [place] [address] 08/14/2024 10:22:07 08/14/2024 11:38:50 Mass of urinary system structure 971043758 N28.89 9550620 [id number] Milly Landa DO [place] [address] [address] 08/27/2024 08:41:15 08/27/2024 09:54:22 Opioid dependence 68114992 F11.20 moved to monthly on 10/31/23 Last random pill count and utox done 06/19/23- failed- did not leave a urine last utox 08/06/24- Appropriat e Suboxone 8-2mg 1/2 tab po daily (36 films left 08/27)Encour aged Counsellin gUrine toxf/u 4 weeks Nodule of lung 137522472 R91.1 patient with enlarging nodules.Wa s supposed to have bronchosco py, but this was canceled because [facility] doesn't take his insuranceP atient needs to go to [facility] to pulmonolog y Mass of ur inary system structure 677754388 N28.89 1358495 In the ureter- with weight loss and increasing pain in the left legCT scan of abdomen done 05/09/24-IM PRESSION:T here is moderate left hydronephr osis and left hydrourete r. There is no ureteral stone.Ther e is suggestion of an approximat ava 8 mm soft tissue mass in the mid left ureter. Recommend multiphase CT abdomen and pelvis to further evaluate.R epeatThere is mild left hydronephr osis decreased compared to prior. There is homogeneou s decreased enhancemen t of the left kidney compared to the right.Ther e is partial opacificat ion of the left ureter. There is suggestion of rim enhancemen t of the mid left ureter, concerning for ureteral mass. Direct visualizat ion is advised Referred to Urology- saw Dr Brown, however they will not take his insurance Pain in le ft lower limb 505022320 M79.604 237451 Patient with increasing pain in the left legABI's- normal so not PAD.pain starts in the groin area and radiates down the leg- ? femoral nerve impingemen t vs lateral femoral nerve impingemen t vs SI impingemen t on the left. Has previous surgery at this level.Liliam ent has been doing home exercise program and doing OMT and has failed treatmentM RI of the lumbar spine-bonny ed by insurance Depressive disorder 3947 8994 F32.A stableprob able bipolar 2Cont Abilify 5mg po dailyCont Duloxetine 90mg po daily Generalize d anxiety disorder 56951021 F41.1 controlled cont with Buspar prn and Duloxetine 90mg dailyEncou raging counseling - patient resistant Rheumatoid arthritis 698 34275 M06.9 Cont prednisone 5mg po BIDCont methotrexa te 2.5mg 8 tabs weekly (20mg)Cont HumiraCont to follow rheumatolo gy Chronic ob structive pulmonary disease 98426638 J44.9 Controlled Cont with Incruse dailyAlbut breanna prn Recurrent major depression 11967497 F33.9 Mood improved-P atient with probable bipolar disorder- responded to mood stabilizer son duloxetine 90mg po dailyBuspa r 5mg po BIDCont Abilify 5mg po nightlyCon t Lamictal 100mgSome evidence of TD- may need congentin Psychophys iologic insomnia 006229053 F51.04 Controlled Cont trazodone 50-100mg po nightly Pain of knee region 1003 357812 M25.562 32099968 + effusion and pain in the left kneeXR of the knee done 05/09/24- normal? secondary to RA flare Lumbar radiculopathy 128 359532 M54.16 44672 Patient with Left leg pain that is increasing with home exercise program for the last 8 weeksOMT has been performed as wellPrior surgery on S1MRI of the lumbar spine declined by insurances [facility] for 6-8 weeks [id number] Milly aLnda DO [address] [address] 10/01/2024 08:39:30 10/01/2024 09:21:47 Opioid dependence 85957773 F11.20 moved to monthly on 10/31/23 Last random pill count and utox done 06/19/23- failed- did not leave a urine last utox 08/27/24- Appropriat e Suboxone 8-2mg 1/2 tab po daily (36 films left 08/27)Encour aged Counsellin gUrine toxf/u 4 weeks Lumbar radiculopathy 128 887305 M54.16 81156 WorseningP atient with Left leg pain that is increasing with home exercise program for the last 8 weeksOMT has been performed as wellPrior surgery on S1MRI of the lumbar spine declined by insuranceS [facility] PT for 6-8 weeks- starts on trial of gabapentin 300mgtrial of prednisone 40mg po daily Nodule of lung 868286083 R91.1 patient with enlarging nodules.Wa s seen by pulmonolog y Mass of ur inary system structure 230309086 N28.89 8497822 In the ureter- with weight loss and increasing pain in the left legCT scan of abdomen done 05/09/24-IM PRESSION:T here is moderate left hydronephr osis and left hydrourete r. There is no ureteral stone.Ther e is suggestion of an approximat ava 8 mm soft tissue mass in the mid left ureter. Recommend multiphase CT abdomen and pelvis to further evaluate.R epeatThere is mild left hydronephr osis decreased compared to prior. There is homogeneou s decreased enhancemen t of the left kidney compared to the right.Ther e is partial opacificat ion of the left ureter. There is suggestion of rim enhancemen t of the mid left ureter, concerning for ureteral mass. Direct visualizat ion is advised Had procedure done by Dr Galvez 09/15/24- surgical pathology inconclusi ve. However no high grade carinoma- + atypical cells. Tissue did not survive pathology processing Has stent placed in the kidney- has scheduled procedure on the at 8:30 in the morning Pain in le ft lower limb [id number] M79.605 110560 Patient with increasing pain in the left legABI's- normal so not PAD.pain starts in the groin area and radiates down the leg- ? femoral nerve impingemen t vs lateral femoral nerve impingemen t vs SI impingemen t on the left. Has previous surgery at this level.Liliam ent has been doing home exercise program and doing OMT and has failed treatmentM RI of the lumbar spine-bonny ed by insurance Depressive disorder 2557 4513 F32.A stableprob able bipolar 2Cont Abilify 5mg po dailyCont Duloxetine 90mg po daily Generalize d anxiety disorder 21776271 F41.1 Controlled cont with Buspar prn and Duloxetine 90mg dailyEncou raging counseling - patient resistant Rheumatoid arthritis 698 64726 M06.9 Cont prednisone 5mg po BIDCont methotrexa te 2.5mg 8 tabs weekly (20mg)Cont HumiraCont to follow rheumatolo gy Chronic ob structive pulmonary disease 66662615 J44.9 Controlled Cont with Incruse dailyAlbut breanna prn Recurrent major depression 61211096 F33.9 Mood improved-P atient with probable bipolar disorder- responded to mood stabilizer son duloxetine 90mg po dailyBuspa r 5mg po BIDCont Abilify 5mg po nightlyCon t Lamictal 100mgSome evidence of TD- may need congentin Psychophys iologic insomnia 345841310 F51.04 Controlled Cont trazodone 50-100mg po nightly Tobacco de pendence syndrome 53321872 F17.200 60486 now down to 3/4 ppd.nicoti ne 14mg [id number] Jose Borrego MD [facility] [address] [place] [address] [place] [address] 10/09/2024 08:51:59 10/09/2024 10:07:01 Lumbar radiculopathy 731642532 M54.16 37438 left Disorder o f lumbar disc 281934187 M51.9 232276 Lumbar spondylosis 78420 0009 M47.816 38399 [id number] Milly Landa DO [address] [address] 10/29/2024 08:43:09 10/29/2024 09:30:26 Opioid dependence 30999903 F11.20 moved to monthly on 10/31/23 Last random pill count and utox done 06/19/23- failed- did not leave a urine last utox 10/01/24- Appropriat e Suboxone 8-2mg 1 tab po BIDEncoura ged Counsellin gUrine toxf/u 4 weeks Lumbar radiculopathy 128 853545 M54.16 49198 improved slightlyPr ior surgery on S1MRI of the lumbar spine declined by insuranceS tarted PT stopped due to schedule and increasing painCont gabapentin 400mg TIDSeeing pain management Pain in le ft lower limb 596405010 M79.604 494305 pain improving slightlyAB I's- normal so not PAD.pain starts in the groin area and radiates down the leg- ? femoral nerve impingemen t vs lateral femoral nerve impingemen t vs SI impingemen t on the left. Has previous surgery at this level.Liliam ent has been doing home exercise programMRI of the lumbar spine-[facility] g[facility] 400[facility] po TID Depressive disorder 3548 9007 F32.A stableprob able bipolar 2Cont Abilify 5mg po dailyCont Duloxetine 90mg po daily Generalize d anxiety disorder 86675503 F41.1 Controlled cont with Buspar prn and Duloxetine 90mg dailyEncou raging counseling - patient resistant Rheumatoid arthritis 698 29672 M06.9 Cont methotrexa te 2.5mg 8 tabs weekly (20mg)Cont Humirapred nisone for flaresCont to follow rheumatolo gy Chronic ob structive pulmonary disease 07110975 J44.9 Controlled Cont with Incruse dailyAlbut breanna prn Recurrent major depression 61457388 F33.9 Mood improved-P atient with probable bipolar disorder- responded to mood stabilizer son duloxetine 90mg po dailyBuspa r 5mg po BIDCont Abilify 5mg po nightlyCon t Lamictal 100mgSome evidence of TD- may need congentin Psychophys iologic insomnia 592863552 F51.04 Controlled Cont trazodone 50-100mg po nightly Tobacco de pendence syndrome 89828638 F17.200 08506 now down to 1/2 ppd.Cont nicotine 14mg patch [id number] Milly Landa DO [address] [address] 11/26/2024 08:40:23 11/26/2024 09:54:46 Opioid dependence 98905351 F11.20 moved to monthly on 10/31/23 Last random pill count and utox done 06/19/23- failed- did not leave a urine last utox 10/29/24- Appropriat e Suboxone 8-2mg 1 tab po BIDEncoura ged Counsellin gUrine toxf/u 4 weeks Lumbar radiculopathy 128 835914 M54.16 30737 ImprovedPr ior surgery on S1MRI of the lumbar spine declined by insuranceS tarted PT stopped due to schedule and increasing painSeeing pain management Has gabapentin if pain is severe Pain in le ft lower limb 073149225 M79.605 112825 secondary to lumbar radiculopa thyGabapen tin prn Generalize d anxiety disorder 94502720 F41.1 Controlled stopped all medication s Rheumatoid arthritis 698 72698 M06.9 Patient has not taken his medication s in a year stop methotrexa te 2.5mg 8 tabs weekly (20mg)- due to soresresta rt Humirapred nisone for flaresCont to follow rheumatolo gy Chronic ob structive pulmonary disease 62287944 J44.9 Controlled Cont with Incruse dailyAlbut breanna prn Recurrent major depression 69197551 F33.9 Mood improvedof f all medication and feels well Psychophys iologic insomnia 482219522 F51.04 improvedof f medication and sleep welltrazod one 75-150mg po nightly as needed Tobacco de pendence syndrome 53144822 F17.200 55659 now down to 1/2 ppd.- smokes mostly during the dayCont nicotine 14mg patch Depression screening 171 591270 Z13.31 2486570 Phq-0negat iverepeat in 1 year Requires v accination against Streptococcus pneumoniae 2997215510 Z23 031915 Requires v aricella vaccination 820851442 Z23 050692 Screening for malignant neoplasm of colon 895382160 Z12.11 over due [id number] Milly Landa DO [address] [address] 12/24/2024 08:43:52 12/24/2024 09:25:04 Opioid dependence 06095698 F11.20 moved to monthly on 10/31/23 Last random pill count and utox done 06/19/23- failed- did not leave a urine last utox 11/26/24- Appropriat e Suboxone 8-2mg 1 tab po BIDEncoura ged Counsellin gUrine toxf/u 4 weeks Lumbar radiculopathy 128 271805 M54.16 95212 SEVERE PAIN in distributi on of L5Can not walk on the left leg without it giving outloss of bowel and bladder control occassiona llyPrior surgery on S1MRI of the lumbar spine declined by insuranceS tarted PT stopped due increasing painFailed OMTSeeing pain management Has gabapentin if pain is severeWill attempt to get the MRI as PATIENT NEEDS EPIDURASL INJECTION VS SURGERY Pain in le ft lower limb 976647827 M79.605 069209 secondary to lumbar radiculopa thyGabapen tin prn Generalize d anxiety disorder 52318896 F41.1 Controlled stopped all medication s Rheumatoid arthritis 698 36283 M06.9 Patient has not taken his medication s in a year stop methotrexa te 2.5mg 8 tabs weekly (20mg)- due to soresresta rt Humirapred nisone for flaresCont to follow rheumatolo gy Chronic ob structive pulmonary disease 85487385 J44.9 Controlled Cont with Incruse dailyAlbut breanna prn Recurrent major depression 92521326 F33.9 Mood improvedof f all medication and feels well Psychophys iologic insomnia 749094859 F51.04 improvedof f medication and sleep welltrazod one 75-150mg po nightly as needed Tobacco de pendence syndrome 98905775 F17.200 18911 now down to 1/2 ppd.- smokes mostly during the dayCont nicotine 14mg patch Health Concerns Section Related Observation LastModified by Organization Detai ls LastModified Time None Recorded Concern Status LastModified by Organization Details LastModified Time None Recorded Advance Directives Directive Y: Jeanne Coates Payers Insurance Date Sequence Insurance Name Policy Number Policy Stewart Covered Member ID Stewart Member ID Guarantor Name 10/01/2024 1 [facility] [employer] - TOGETHER (MEDICAID HMO) Kinga Coates [id number] Jareth Coates 10/01/2024 1 [facility] [employer] - UNIFY - ONE CARE (MEDICARE - MEDICAID REPLACEMENT) Kinga Coates [id number] Jareth Coates 10/01/2024 1 [facility] [employer] [facility] (HMO) [id number] Mark Coates [id number] Jareth Coates 10/01/2024 1 [facility] (O) Mark Coates [id number] Jareth Coates 10/01/2024 1 [facility] [id number] Mark Coates [id number] Jareth Coates 12/30/2024 1 [facility] [employer] - DIRECT CONNECTORCARE TYPE I (HMO) [id number] Mark Coates [id number] Jareth Coates 12/30/2024 2 [place]: [facility] Mark Coates [id number] 3 Pedroalvin Hardenmoises Notes Date Note Type Note Provider Name and Address Organization Details Recorded Time 5 text/html ROS as noted in the HPI 59 yo M presents for opioid dependency, depression, anxiety, insomnia, and RA. Pt doing well today. Starting PT 10/15. He was supposed to start last month but had day surgery instead. States he does not recall being told anything up waking but he was coming out of anesthesia.This procedure was done by Dr. Galvez on 09/15. He does have a f/u appt 10/08/[address] Galvez for flex cysto L stent removal. Pt was unaware.Pt needs to do 8wks PT before MRI can be approved. Pt inquires about Gabapentin for his L leg pain. Has had surgery on sciatica in the past. Bulge disc was shaved down. Pain has increased over time. Also inquiries about prednisone. Has been in crippling pain and has to use a starr to walk. Cannot even do yard work at home. Reports the past few days the pain has been manageable but he has not been exerting himself. Pt is worried that with use. the pain it may flare up again. Pt would like to quit smoking but is requesting help. Has tried vapes to quit but they do not sell them anymore. He only smokes about 3-4 cigarettes during the day and a few more when he gets home. Would like to try nicotine patches and he will buy the gum. Denies smoking during the night. Opioid Dependence:Current Dose: 09/26 BID #56mo, 16mg dayCompliant with Medication: YesWeaning: NoIllicit drug use since last visit? NoEngaged in Therapy? NoAA/NA/group: NoPMP check and reassuring: Patient is not getting controlled medication from any other facility. Most Recent Utox- 08/27/24 Appropriate Living Situation: [place]Working: Yes- Delivering auto parts- loves it Milly Landa, DO [address], [place], [address], [facility] 10/01/2024 09:20:23 5 text/html Pain Management: New PatientReported by PatientHPIFor what caused your pain?, patient reportsno obvious cause. For how often does your pain occur?, patient reportscontinuous. For how long does your pain last?, patient reportscontinuous. For described your pain, patient reportsthrobbing,shooting,s harp,aching,heavy, andexhausting. For your highest pain intensity over the past week, patient [id number] worst pain. For your lowest pain intensity over the past week, patient avfpuyx15 worst pain. For your usual pain intensity over the past week, patient [id number] worst pain. For your pain scale today, patient [id number] worst pain. For makes pain better?, patient reportssittingandlying down. For makes pain worse?, patient reportswalking. For interferes with activities, patient reportsgeneral activity: 10,mood: 10,walking ability: 10,work: 10,relationships with other people: 10,sleep: 10, andenjoyment of life: 10. For prior tests?, patient reportsemg. For conditions associated with your pain?, patient reportsdifficulty walking. For location, (low back into l leg into the foot w tingling). For how long have you had this pain?, (about 8 or 9 months, maybe longer). For prior medications you've tried?, (asprin). Jose Borrego MD [address] [place] [address], [phone], [facility] 10/09/2024 09:58:54 5 text/html ROS as noted in the HPI 59 yo M presents for opioid dependency, depression, anxiety, insomnia, and RA. Pt has been going to PT but is not anymore. Feels that it is too much with his schedule and increasing pain. He has been doing PT exercises at home which seems to help in conjunction with his gabapentin 400mg 3x daily. Pt is seeing pain management and his next appt is 12/[address] Borrego. Leg pain is improving and he has good and bad days. Everything else is going fine. Pt has cut down to half a pack of cigarettes/10 daily from 3/4 of a pack/15 daily. Hardly smokes while at work and is using the nicotine patches. Does admit it has been hard to quit.Hearing has been good. No more blockages. Opioid Dependence:Current Dose: 09/26 BID #56mo, 16mg dayCompliant with Medication: YesWeaning: NoIllicit drug use since last visit? NoEngaged in Therapy? NoAA/NA/group: NoPMP check and reassuring: Patient is not getting controlled medication from any other facility. 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 *Depression screening, colorectal screening, shingles and PNA vax duepatient needs a CPE has not had one (RAÚL, ISABELLA) Pt states he had stopped taking the majority of his medications besides his suboxone about a year ago. (including all depression/anxiety/arthriti s/pain meds) Reports he did not want to take pills anymore. Patient states he is doing well off his medications and not having any issues.Sleep has been good and not needing trazadone. Goes to bed at 9pm every night and falls right to sleep. Does have trazadone if he needs it. Still hasn't quit smoking. Doing a half pack a day but maybe less. Smokes mostly during the work day. Does not smoke much at home. Opioid Dependence:Current Dose: 09/26 BID #56mo, 16mg dayCompliant with Medication: YesWeaning: NoIllicit drug use since last visit? NoEngaged in Therapy? NoAA/NA/group: NoPMP check and reassuring: Patient is not getting controlled medication from any other facility. 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 Patient here today in severe pain. Has not been able to walk. Having incontinence of bladder and bowel. Went to 1 PT session and could not tolerate. Pt has also tried OMT which he failed.Has had surgery in the past. Went to pain management once a month ago and pain improved after for a short period of time. Now pain is much worse. I need surgery , I need to see a surgeon Neurosurgery will not see without the MRI of the back. I can't go on like this . Almost had to go to ER Saturday d/o pain being so bad that he could not even walk.+Shooting pain down legs b/l when raised. Burning pain shooting down to center toes. Opioid Dependence:Current Dose: 09/26 BID #56mo, 16mg dayCompliant with Medication: YesWeaning: NoIllicit drug use since last visit? NoEngaged in Therapy? NoAA/NA/group: NoPMP check and reassuring: Patient is not getting controlled medication from any other facility. 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
== END 2025-01-11 12:15 | disposition home or self-care (01) ==
PROVIDERS: PCP Family Medicine; Referring Provider Family Medicine; Visit Provider Physician Assistant
DX: M54.16 Radiculopathy, lumbar region (principal)
CPT/HCPCS: 99204

== ENCOUNTER 2025-01-11 10:32 | Outpatient (REF) | payer OTHER, SELFPAY ==
--- NOTE | ~2025-01-11 | XR_ITS ---
EXAMINATION: XR LUMBOSACRAL SPINE CLINICAL INFORMATION: M54.16 - Radiculopathy, lumbar region COMPARISON: None available. TECHNIQUE: Lateral views during flexion and extension position. AP view. FINDINGS: Dextroconvex curvature of the lumbar spine. Facet joint hypertrophy at L4-5 and L5-S1. Multilevel endplate sclerosis and small marginal osteophyte formation pronounced from L3 to L5 S1. Grade 1 anterolisthesis at L4-5 in neutral position which persists during flexion and extension position. Vacuum phenomenon at L5-S1. Vascular calcifications, aorta. Degenerative changes in both coxofemoral joints pronounced on the left hip. XR/XR lumbar spine 4V min IMPRESSION: Grade 1 anterolisthesis L4-5 without instability. Multilevel spondylosis pronounced at L5-S1 and to a lesser extent L4-5. Osteoarthrosis/osteoarthritis, left greater than the right hips. Electronically signed by: Rashad Vivas MD 01/11/2025 01:50 PM EST
== END 2025-01-11 10:33 | disposition home or self-care (01) ==
LOC: HO.HOSX 10:32
PROVIDERS: PCP Family Medicine; Referring Provider Family Medicine; Visit Provider Physician Assistant
DX: M54.16 Radiculopathy, lumbar region (principal)
CPT/HCPCS: 72110; 99202

== ENCOUNTER → 2025-01-11 12:15 | Outpatient (BNV) | payer OTHER, MEDICAID, SELFPAY | PROVIDERS: PCP Family Medicine; Referring Provider Family Medicine; Visit Provider Radiology Diagnostic Radiology | DX: M43.16 Spondylolisthesis, lumbar region (principal); M47.27 Other spondylosis with radiculopathy, lumbosacral region | CPT/HCPCS: 72110 ==

== ENCOUNTER → 2025-02-10 10:26 | Outpatient (BNV) | payer OTHER, SELFPAY | PROVIDERS: Visit Provider Internal Medicine Cardiovascular Disease | DX: I45.10 Unspecified right bundle-branch block (principal); R00.1 Bradycardia, unspecified | CPT/HCPCS: 93010 ==